=== PATIENT | male | born 1955 | race Hispanic/Latino ===

== ENCOUNTER 2023-03-03 19:22 | Inpatient (IN) | payer MEDICARE ==
[~2023-03-03] VITALS: Ht 157.5 cm; Wt 107.5 kg
[2023-03-03] MEDS ORDERED: 0.9%NACL 1000ML 1,000 ML IV ONE (20:14)
[2023-03-03] MEDS ORDERED: IPRATROPIUM/ALBUTEROL SULFATE 3 ML SOLUTION IH STA (20:26)
[2023-03-03] MEDS ORDERED: IPRATROPIUM/ALBUTEROL SULFATE 3 ML SOLUTION IH ONE (20:30)
[2023-03-03] MEDS ORDERED: CEFTRIAXONE 2GM VIAL IVPB ONE (20:30)
[2023-03-03 20:31] LABS: BASOPHILS # (AUTO) 0.08 K/uL (0.00-0.20); BASOPHILS % (AUTO) 0.7 % (0.0-5.0); EOSINOPHILS # (AUTO) 0.55 K/uL (0.00-0.70); EOSINOPHILS % (AUTO) 4.7 % (0.0-8.0); HEMATOCRIT 38.5 % (42-54); IMMATURE GRANULOCYTE ABSOLUTE 0.36 K/uL (0-1); LYMPHOCYTES # (AUTO) 0.3 K/uL (1.0-4.8); LYMPHOCYTES % (AUTO) 2.6 % (21.0-51.0); MEAN CORPUSCULAR HEMOGLOBIN 27.8 pg (27.0-33.0); MEAN CORPUSCULAR HGB CONC 32.5 g/dL (32.0-36.0); MEAN CORPUSCULAR VOLUME 85.6 fL (79-99); MONOCYTES # (AUTO) 0.4 K/uL (0.1-1.0); MONOCYTES % (AUTO) 3.4 % (3.0-13.0); NEUTROPHILS % (AUTO) 85.5 % (40.0-77.0); PLATELET COUNT (AUTO) 127 K/uL (130-400); RED CELL DISTRIBUTION WIDTH 12.6 % (11.0-15.5); WHITE BLOOD COUNT (AUTO) 11.7 K/uL (4.8-10.8)
[2023-03-03 20:32] VITALS: PULSE 93; RESP 19
[2023-03-03 20:35] VITALS: PULSE 90; RESP 23
[2023-03-03 20:39] LABS: CREATININE 3.8 mg/dL (0.5-1.5); POTASSIUM 3.8 mmol/L (3.5-5.1)
[2023-03-03 20:44] LABS: ALBUMIN 2.8 g/dL (3.5-5.0); BILIRUBIN,TOTAL 0.6 mg/dL (0.2-1.0); TOTAL PROTEIN, SERUM 6.5 g/dL (6.0-8.3)
[2023-03-03 20:51] LABS: APPEARANCE,URINE TURBID (CLEAR); BILIRUBIN,URINE NEGATIVE (NEGATIVE); COLOR,URINE YELLOW (YELLOW); GLUCOSE, URINE (UA) TRACE mg/dL (NEGATIVE); KETONES,URINE 5 mg/dL (NEGATIVE); LEUKOCYTE ESTERASE ,URINE 75 Leu/uL (NEGATIVE); NITRATE,URINE NEGATIVE (NEGATIVE); OCCULT BLOOD,URINE MODERATE (NEGATIVE); PH,URINE 5.5 (5.0-8.0); PROTEIN,URINE 300 mg/dL (NEGATIVE); UROBILINOGEN,URINE 0.2 mg/dL (0.2-1.0)
[2023-03-03 20:53] LABS: INFLUENZA TYPE A Negative For Type A (NEGATIVE); INFLUENZA TYPE B Negative For Type B (NEGATIVE)
[2023-03-03 20:54] LABS: ADD UA MICROSCOPIC YES
[2023-03-03 20:58] LABS: RAPID GROUP A STREP negative (NEGATIVE)
[2023-03-03 20:59] LABS: SARS-CoV-2, RNA, NAAT NEGATIVE SARS CoV-2 (NEGATIVE)
[2023-03-03 21:06] LABS: BACTERIA,URINE RARE /HPF (None Seen); MUCUS,URINE RARE LPF (None Seen); OTHER CASTS, URINE 1 /LPF (None Seen); SQUAMOUS EPITHELIAL CELL,UR FEW /HPF (0-2); WBC CLUMP FEW /HPF (0-1); WBC,URINE 26-50 /HPF (0-1); YEAST,URINE BUDDING RARE /HPF (None Seen)
[2023-03-03 21:15] LABS: BAND NEUTROPHILS % (MANUAL) 32 % (0-2); LYMPHOCYTES % (MANUAL) 4 % (22-44); METAMYELOCYTES % 5 % (0-0); MONOCYTES % (MANUAL) 6 % (2-9); SEGMENTED NEUTROPHILS % 53 % (40-70); TOTAL CELLS COUNTED 100
[2023-03-03 21:16] LABS: MAN.DIFF COMMENT-IMPRESSION MANUAL DIFFERENTIAL; PLATELET MORPHOLOGY COMMENT ADEQUATE
[2023-03-03 21:17] LABS: B-TYPE NATRIURETIC PEPTIDE 231 pg/mL (0-100)
[2023-03-03] MEDS ORDERED: ENOXAPARIN SODIUM 120 MG/0.8ML SQ STA (21:32)
[2023-03-03] MEDS ORDERED: ENOXAPARIN SODIUM 100 MG/1 ML SQ ONE (21:34)
[2023-03-03 21:36] LABS: INR 1.55 (0.85-1.15); PROTHROMBIN TIME 17.5 SEC (9.6-11.6)
[2023-03-03 21:37] LABS: PARTIAL THROMBOPLASTIN TIME 37.1 SEC (26.3-35.5)
[2023-03-03] MEDS ORDERED: 0.9%NACL 1000ML 1,707 ML IV ONE (22:00)
[2023-03-03] MEDS ORDERED: NOREPINEPHRIN 4MG/NS 250ML 250 ML IV ONE (22:08)
[2023-03-03] MEDS ORDERED: ZOSYN 3.375GM+NS 50ML 50 ML IVPB ONE (23:55)
[2023-03-03] MEDS ORDERED: VANCOMYCIN 1G/250ML KIT 250 ML IV ONE (23:55)
[2023-03-03] MEDS ORDERED: FUROSEMIDE 20MG VIAL ONE (23:56)
[2023-03-04] VITALS (94 sets, daily range): BP systolic 67–151; BP diastolic 22–92; PULSE 84–110; RESP 12–30; O2SAT 95–98
[2023-03-04] MEDS: NOREPINEPHRIN 4MG/NS 250ML 250 ML IV SCH ×3 (00:16→22:09)
[2023-03-04] MEDS ORDERED: VANCOMYCIN KIT 1 GM/250 ML IV.KIT IV ONE (00:30)
[2023-03-04] MEDS ORDERED: FUROSEMIDE 20MG VIAL IV ONE (00:30)
[2023-03-04] MEDS ORDERED: ZOSYN 3.375GM +NS 50ML IVPB ONE (00:30)
[2023-03-04] MEDS ORDERED: ACETAMINOPHEN 500 MG TABLET ONE (00:34)
[2023-03-04] MEDS ORDERED: IPRATROPIUM/ALBUTEROL SULFATE 3 ML SOLUTION IH ONE (00:37)
[2023-03-04] MEDS: IPRATROPIUM/ALBUTEROL SULFATE 3 ML SOLUTION IH SCH ×6 (00:43→22:49)
[2023-03-04] MEDS ORDERED: VANCOMYCIN PROTOCOL PER PHARMACY IV SCH (01:00)
[2023-03-04] MEDS ORDERED: 0.9%NACL 50ML IV SCH (01:00)
[2023-03-04] MEDS: ZOSYN 3.375GM +NS 50ML IVPB SCH ×2 (01:00→11:45)
[2023-03-04] MEDS ORDERED: SODIUM BICARB 50MEQ 50ML VIAL 200 ML ONE (01:07)
[2023-03-04] MEDS ORDERED: FUROSEMIDE 40MG VIAL ONE (01:47)
[2023-03-04] MEDS ORDERED: SOLU-MEDROL 125MG VIAL ONE (01:47)
[2023-03-04] MEDS: FUROSEMIDE 40MG VIAL IV SCH ×3 (01:55→22:00)
[2023-03-04] MEDS: SOLU-MEDROL 125MG VIAL IVP SCH ×4 (01:56→20:13)
[2023-03-04] MEDS: 0.9%NACL 1000ML 1,000 ML IV SCH ×2 (01:58→14:20)
[2023-03-04] MEDS ORDERED: DEXTROSE 50%-WATER 50 ML DISP.SYRIN IV PRN (02:00)
[2023-03-04] MEDS ORDERED: ACETAMINOPHEN 500 MG TABLET PO ONE (02:00)
[2023-03-04] MEDS ORDERED: GLUCAGON 1MG KIT 1 MG ML IM PRN (02:00)
[2023-03-04] MEDS ORDERED: FUROSEMIDE 40MG VIAL IV SCH (02:00)
[2023-03-04] MEDS ORDERED: SODIUM BICARB 50MEQ 50ML VIAL IV ONE (02:00)
[2023-03-04] MEDS ORDERED: SOLU-MEDROL 125MG VIAL IVP ONE (02:00)
[2023-03-04] MEDS ORDERED: HYDROMORPHONE 0.5 MG SYG (0.5MG/0.5ML) ONE (02:10)
[2023-03-04] MEDS ORDERED: HYDROMORPHONE 0.5 MG SYG (0.5MG/0.5ML) IVP ONE (02:30)
[2023-03-04 04:09] LABS: ABG BASE EXCESS -4.3 mmol/L (-2.0-3.0); ABG HCO3 21.9 mmol/L (21.0-28.0); ABG PCO2 45 mmHg (35-48); CARBON MONOXIDE 0.3; HHb 2.8; PO2, ARTERIAL BG 97.6 mmHg (83.0-108.0); VENT MODE, BG N.C 2 LPM (ROOM AIR)
[2023-03-04 04:23] LABS: BASOPHILS # (AUTO) 0.08 K/uL (0.00-0.20); BASOPHILS % (AUTO) 0.9 % (0.0-5.0); EOSINOPHILS # (AUTO) 0.59 K/uL (0.00-0.70); EOSINOPHILS % (AUTO) 6.8 % (0.0-8.0); HEMATOCRIT 36.4 % (42-54); IMMATURE GRANULOCYTE ABSOLUTE 0.16 K/uL (0-1); LYMPHOCYTES # (AUTO) 0.1 K/uL (1.0-4.8); LYMPHOCYTES % (AUTO) 1.6 % (21.0-51.0); MEAN CORPUSCULAR HEMOGLOBIN 27.7 pg (27.0-33.0); MEAN CORPUSCULAR HGB CONC 32.1 g/dL (32.0-36.0); MEAN CORPUSCULAR VOLUME 86.1 fL (79-99); MONOCYTES # (AUTO) 0.4 K/uL (0.1-1.0); MONOCYTES % (AUTO) 4.9 % (3.0-13.0); NEUTROPHILS # (AUTO) 7.3 K/uL (1.8-7.7); PLATELET COUNT (AUTO) 102 K/uL (130-400); RED BLOOD CELL COUNT(AUTO) 4.23 MIL/uL (4.50-6.20); RED CELL DISTRIBUTION WIDTH 12.6 % (11.0-15.5); WHITE BLOOD COUNT (AUTO) 8.7 K/uL (4.8-10.8)
[2023-03-04 04:47] LABS: ALBUMIN 2.3 g/dL (3.5-5.0); BILIRUBIN,TOTAL 0.4 mg/dL (0.2-1.0); CREATININE 3.4 mg/dL (0.5-1.5); MAGNESIUM 1.4 mg/dL (1.80-2.40); POTASSIUM 3.2 mmol/L (3.5-5.1); TOTAL PROTEIN, SERUM 5.8 g/dL (6.0-8.3)
[2023-03-04] MEDS ORDERED: VANCOMYCIN 1.75 GM/250 ML BAG 250 ML IV SCH (08:01)
[2023-03-04] MEDS ORDERED: MAGNESIUM 2GM PREMIX 50ML 50 ML IV ONE (08:24)
[2023-03-04] MEDS ORDERED: VANCOMYCIN 750MG VIAL IVPB SCH (09:00)
[2023-03-04] MEDS: MAGNESIUM 2GM PREMIX 50ML 50 ML IV PRN ×2 (09:20→16:17)
[2023-03-04] MEDS: INSULIN HUMULIN R 100 UNIT/ML 3ML SQ SCH ×4 (09:35→20:16)
[2023-03-04] MEDS ORDERED: ACETAMINOPHEN 325 MG TAB PO PRN (10:00)
[2023-03-04 12:50] LABS: INR 1.37 (0.85-1.15); PROTHROMBIN TIME 15.6 SEC (9.6-11.6)
[2023-03-04] MEDS: ASPIRIN 81 MG EC TAB PO SCH (14:18)
[2023-03-04] MEDS: CLOPIDOGREL 75MG TAB PO SCH (14:18)
[2023-03-04] MEDS ORDERED: POTASSIUM CHLORIDE 10% ELIXIR 20 MEQ/15 ML UDCUP PO PRN (15:30)
[2023-03-04] MEDS: LINEZOLID 600 MG/ISO-OSM 300 ML IV SCH (16:17)
[2023-03-04] MEDS: KCL 20 MEQ ERTAB PO PRN ×2 (16:18→22:02)
[2023-03-04] MEDS: HYDROCORTISONE SOD SUCCINATE 100 MG/2 ML VIAL IV SCH (21:41)
[2023-03-04] MEDS: ONDANSETRON 4MG INJ IV PRN (22:24)
[2023-03-05] VITALS (60 sets, daily range): BP systolic 82–143; BP diastolic 40–116; PULSE 82–98; RESP 15–33; O2SAT 95–96
[2023-03-05] MEDS: IPRATROPIUM/ALBUTEROL SULFATE 3 ML SOLUTION IH SCH ×6 (00:33→22:13)
[2023-03-05] MEDS: ZOSYN 3.375GM +NS 50ML IVPB SCH ×2 (01:22→13:00)
[2023-03-05] MEDS ORDERED: KETOROLAC 15MG/ML VIAL (15MG/ML) ONE (02:22)
[2023-03-05] MEDS ORDERED: KETOROLAC 30MG VIAL (30MG/ML) ONE (02:24)
[2023-03-05] MEDS: LINEZOLID 600 MG/ISO-OSM 300 ML IV SCH ×2 (02:25→13:52)
[2023-03-05] MEDS ORDERED: KETOROLAC 30MG VIAL (30MG/ML) IVP PRN (02:30)
[2023-03-05] MEDS ORDERED: INSULIN GLARGINE 100 UNITS/ML 10 ML VIAL SQ SCH (07:30)
[2023-03-05] MEDS: PANTOPRAZOLE 40 MG TAB DR PO SCH (07:30)
[2023-03-05] MEDS: CLOPIDOGREL 75MG TAB PO SCH (09:00)
[2023-03-05] MEDS: ATORVASTATIN 20 MG TABLET PO SCH (09:00)
[2023-03-05] MEDS: ASPIRIN 81 MG EC TAB PO SCH (09:00)
[2023-03-05] MEDS: HYDROCORTISONE SOD SUCCINATE 100 MG/2 ML VIAL IV SCH ×3 (09:00→20:33)
[2023-03-05] MEDS ORDERED: LOPERAMIDE HCL 2 MG CAP PO ONE (09:27)
[2023-03-05] MEDS: INSULIN HUMULIN R 100 UNIT/ML 3ML SQ SCH ×3 (11:30→20:40)
[2023-03-05] MEDS: FUROSEMIDE 40MG VIAL IV SCH ×2 (13:52→23:06)
[2023-03-05] MEDS ORDERED: LOPERAMIDE HCL 2 MG CAP PO PRN (14:00)
[2023-03-05] MEDS ORDERED: MIDODRINE HCL 5 MG TABLET PO PRN (14:00)
[2023-03-05 14:47] LABS: BASOPHILS # (AUTO) 0.01 K/uL (0.00-0.20); BASOPHILS % (AUTO) 0.1 % (0.0-5.0); EOSINOPHILS # (AUTO) 0.32 K/uL (0.00-0.70); EOSINOPHILS % (AUTO) 2.8 % (0.0-8.0); HEMATOCRIT 36.2 % (42-54); IMMATURE GRANULOCYTE ABSOLUTE 0.59 K/uL (0-1); LYMPHOCYTES # (AUTO) 0.2 K/uL (1.0-4.8); MEAN CORPUSCULAR HEMOGLOBIN 27.7 pg (27.0-33.0); MEAN CORPUSCULAR HGB CONC 32.9 g/dL (32.0-36.0); MEAN CORPUSCULAR VOLUME 84.4 fL (79-99); MONOCYTES # (AUTO) 0.6 K/uL (0.1-1.0); MONOCYTES % (AUTO) 5.6 % (3.0-13.0); NEUTROPHILS # (AUTO) 9.5 K/uL (1.8-7.7); NEUTROPHILS % (AUTO) 84.3 % (40.0-77.0); PLATELET COUNT (AUTO) 75 K/uL (130-400); RED BLOOD CELL COUNT(AUTO) 4.29 MIL/uL (4.50-6.20); RED CELL DISTRIBUTION WIDTH 12.8 % (11.0-15.5); WHITE BLOOD COUNT (AUTO) 11.3 K/uL (4.8-10.8)
[2023-03-05] MEDS ORDERED: MIDODRINE HCL 5 MG TABLET ONE (15:46)
[2023-03-05] MEDS: 0.9%NACL 10ML VIAL IV SCH (20:33)
[2023-03-05] MEDS: INSULIN GLARGINE 100 UNITS/ML 10 ML VIAL SQ SCH (20:35)
[2023-03-05 23:10] LABS: ALBUMIN 2.1 g/dL (3.5-5.0); BILIRUBIN,TOTAL 0.5 mg/dL (0.2-1.0); CREATININE 3.1 mg/dL (0.5-1.5); MAGNESIUM 2.1 mg/dL (1.80-2.40); PHOSPHORUS 4.7 mg/dL (2.5-4.9); POTASSIUM 3.6 mmol/L (3.5-5.1); THYROID STIMULATING HORMONE 0.73 uIU/mL (0.36-3.74); TOTAL PROTEIN, SERUM 5.7 g/dL (6.0-8.3); URIC ACID 8.4 mg/dL (2.6-7.2)
[2023-03-06] VITALS (47 sets, daily range): BP systolic 95–149; BP diastolic 42–86; PULSE 75–90; RESP 16–32; O2SAT 94–97
[2023-03-06 01:35] LABS: HEMOGLOBIN A1C 9.5 % (4.0-6.0)
[2023-03-06] MEDS: IPRATROPIUM/ALBUTEROL SULFATE 3 ML SOLUTION IH SCH ×3 (01:53→10:39)
[2023-03-06] MEDS: ZOSYN 3.375GM +NS 50ML IVPB SCH ×2 (02:24→10:59)
[2023-03-06] MEDS: LINEZOLID 600 MG/ISO-OSM 300 ML IV SCH (02:24)
[2023-03-06] MEDS: HYDROCORTISONE SOD SUCCINATE 100 MG/2 ML VIAL IV SCH ×4 (04:23→23:45)
[2023-03-06 04:49] LABS: HEMATOCRIT 32.6 % (42-54); MEAN CORPUSCULAR HEMOGLOBIN 27.6 pg (27.0-33.0); MEAN CORPUSCULAR HGB CONC 32.8 g/dL (32.0-36.0); NUCLEATED RED BLOOD CELLS 0.3 % (0.0-0.19); RED BLOOD CELL COUNT(AUTO) 3.88 MIL/uL (4.50-6.20); RED CELL DISTRIBUTION WIDTH 13.2 % (11.0-15.5); WHITE BLOOD COUNT (AUTO) 13.6 K/uL (4.8-10.8)
[2023-03-06 05:10] LABS: ALBUMIN 1.8 g/dL (3.5-5.0); BILIRUBIN,TOTAL 0.7 mg/dL (0.2-1.0); MAGNESIUM 2.1 mg/dL (1.80-2.40); PHOSPHORUS 3.9 mg/dL (2.5-4.9); TOTAL PROTEIN, SERUM 5.5 g/dL (6.0-8.3)
[2023-03-06] MEDS: FUROSEMIDE 40MG VIAL IV SCH ×2 (06:41→17:01)
[2023-03-06] MEDS: INSULIN GLARGINE 100 UNITS/ML 10 ML VIAL SQ SCH ×2 (06:44→20:36)
[2023-03-06] MEDS: INSULIN HUMULIN R 100 UNIT/ML 3ML SQ SCH ×4 (06:45→20:37)
[2023-03-06] MEDS: 0.9%NACL 10ML VIAL IV SCH ×2 (09:00→20:29)
[2023-03-06] MEDS: PANTOPRAZOLE 40 MG TAB DR PO SCH (09:01)
[2023-03-06] MEDS: NYSTATIN 100000 UNIT/ML 5ML UDCUP PO SCH ×4 (09:01→20:29)
[2023-03-06] MEDS: ATORVASTATIN 20 MG TABLET PO SCH (09:01)
[2023-03-06] MEDS: ASPIRIN 81 MG EC TAB PO SCH (09:02)
[2023-03-06] MEDS: CLOPIDOGREL 75MG TAB PO SCH (09:02)
[2023-03-06] MEDS: POTASSIUM CHLORIDE 10MEQ/100ML 100 ML IV PRN ×3 (09:15→23:45)
[2023-03-06] MEDS ORDERED: VANCOMYCIN PROTOCOL PER PHARMACY IV SCH (13:00)
[2023-03-06] MEDS: NYSTATIN 15 GM POWDER TP SCH ×3 (14:00→20:33)
[2023-03-06] MEDS ORDERED: VANCOMYCIN 750MG VIAL IVPB SCH (16:00)
[2023-03-06] MEDS: IPRATROPIUM 0.5 MG/2.5 ML INH IH SCH ×2 (18:44→23:48)
[2023-03-06 21:05] LABS: MAGNESIUM 2.2 mg/dL (1.80-2.40); POTASSIUM 3.8 mmol/L (3.5-5.1)
[2023-03-07] VITALS (42 sets, daily range): BP systolic 98–149; BP diastolic 60–117; PULSE 60–77; RESP 10–47; O2SAT 95–98
[2023-03-07] MEDS: ZOSYN 3.375GM +NS 50ML IVPB SCH (01:40)
[2023-03-07 03:12] LABS: BASOPHILS # (AUTO) 0.07 K/uL (0.00-0.20); BASOPHILS % (AUTO) 0.4 % (0.0-5.0); EOSINOPHILS # (AUTO) 0.04 K/uL (0.00-0.70); EOSINOPHILS % (AUTO) 0.2 % (0.0-8.0); HEMATOCRIT 33.8 % (42-54); IMMATURE GRANULOCYTE ABSOLUTE 0.32 K/uL (0-1); LYMPHOCYTES # (AUTO) 0.7 K/uL (1.0-4.8); LYMPHOCYTES % (AUTO) 3.9 % (21.0-51.0); MEAN CORPUSCULAR HEMOGLOBIN 27.4 pg (27.0-33.0); MEAN CORPUSCULAR HGB CONC 33.1 g/dL (32.0-36.0); MEAN CORPUSCULAR VOLUME 82.6 fL (79-99); MONOCYTES # (AUTO) 0.6 K/uL (0.1-1.0); MONOCYTES % (AUTO) 3.6 % (3.0-13.0); NEUTROPHILS # (AUTO) 16.1 K/uL (1.8-7.7); NEUTROPHILS % (AUTO) 90.1 % (40.0-77.0); NUCLEATED RED BLOOD CELLS 0.1 % (0.0-0.19); PLATELET COUNT (AUTO) 65 K/uL (130-400); RED BLOOD CELL COUNT(AUTO) 4.09 MIL/uL (4.50-6.20); RED CELL DISTRIBUTION WIDTH 13.5 % (11.0-15.5); WHITE BLOOD COUNT (AUTO) 17.8 K/uL (4.8-10.8)
[2023-03-07 03:20] LABS: ALBUMIN 1.7 g/dL (3.5-5.0); BILIRUBIN,TOTAL 0.8 mg/dL (0.2-1.0); CREATININE 2.7 mg/dL (0.5-1.5); MAGNESIUM 2.3 mg/dL (1.80-2.40); PHOSPHORUS 3.1 mg/dL (2.5-4.9); POTASSIUM 3.6 mmol/L (3.5-5.1); TOTAL PROTEIN, SERUM 5.8 g/dL (6.0-8.3)
[2023-03-07] MEDS ORDERED: HYDROMORPHONE 1 MG INJ IVP ONE (04:00)
[2023-03-07] MEDS: IPRATROPIUM 0.5 MG/2.5 ML INH IH SCH ×4 (06:45→23:10)
[2023-03-07] MEDS: HYDROCORTISONE SOD SUCCINATE 100 MG/2 ML VIAL IV SCH ×3 (06:47→22:18)
[2023-03-07] MEDS: PANTOPRAZOLE 40 MG TAB DR PO SCH (06:47)
[2023-03-07] MEDS: FUROSEMIDE 40MG VIAL IV SCH ×2 (06:48→17:05)
[2023-03-07] MEDS: INSULIN HUMULIN R 100 UNIT/ML 3ML SQ SCH ×4 (06:49→20:40)
[2023-03-07] MEDS: INSULIN GLARGINE 100 UNITS/ML 10 ML VIAL SQ SCH ×2 (06:56→20:41)
[2023-03-07] MEDS: POTASSIUM CHLORIDE 10MEQ/100ML 100 ML IV PRN (07:05)
[2023-03-07] MEDS: NYSTATIN 100000 UNIT/ML 5ML UDCUP PO SCH ×4 (08:28→20:39)
[2023-03-07] MEDS: CLOPIDOGREL 75MG TAB PO SCH (08:29)
[2023-03-07] MEDS: ASPIRIN 81 MG EC TAB PO SCH (08:29)
[2023-03-07] MEDS: ATORVASTATIN 20 MG TABLET PO SCH (08:29)
[2023-03-07] MEDS: CARVEDILOL 6.25 MG TABLET PO SCH ×2 (08:30→20:39)
[2023-03-07] MEDS: NYSTATIN 15 GM POWDER TP SCH ×2 (08:55→15:05)
[2023-03-07] MEDS: CEFTRIAXONE 2GM VIAL IVPB SCH (08:59)
[2023-03-07] MEDS: 0.9%NACL 10ML VIAL IV SCH ×2 (09:00→20:37)
[2023-03-07] MEDS: HYDROMORPHONE 0.5 MG SYG (0.5MG/0.5ML) IVP PRN (11:56)
[2023-03-07] MEDS: ONDANSETRON 4MG INJ IV PRN (18:22)
[2023-03-08] VITALS (12 sets, daily range): BP systolic 93–121; BP diastolic 52–66; PULSE 56–108; RESP 18–22; O2SAT 94–98
[2023-03-08 04:21] LABS: BASOPHILS # (AUTO) 0.11 K/uL (0.00-0.20); BASOPHILS % (AUTO) 0.5 % (0.0-5.0); HEMATOCRIT 37.7 % (42-54); IMMATURE GRANULOCYTE ABSOLUTE 0.59 K/uL (0-1); LYMPHOCYTES # (AUTO) 1.2 K/uL (1.0-4.8); LYMPHOCYTES % (AUTO) 5.8 % (21.0-51.0); MEAN CORPUSCULAR HEMOGLOBIN 27.5 pg (27.0-33.0); MEAN CORPUSCULAR HGB CONC 32.6 g/dL (32.0-36.0); MEAN CORPUSCULAR VOLUME 84.2 fL (79-99); MONOCYTES # (AUTO) 0.8 K/uL (0.1-1.0); MONOCYTES % (AUTO) 3.7 % (3.0-13.0); NEUTROPHILS # (AUTO) 18.6 K/uL (1.8-7.7); NEUTROPHILS % (AUTO) 87.2 % (40.0-77.0); PLATELET COUNT (AUTO) 67 K/uL (130-400); RED BLOOD CELL COUNT(AUTO) 4.48 MIL/uL (4.50-6.20); RED CELL DISTRIBUTION WIDTH 13.6 % (11.0-15.5); WHITE BLOOD COUNT (AUTO) 21.4 K/uL (4.8-10.8)
[2023-03-08 04:49] LABS: ALBUMIN 1.6 g/dL (3.5-5.0); BILIRUBIN,TOTAL 0.5 mg/dL (0.2-1.0); CREATININE 2.3 mg/dL (0.5-1.5); MAGNESIUM 2.4 mg/dL (1.80-2.40); PHOSPHORUS 4.3 mg/dL (2.5-4.9); POTASSIUM 3.9 mmol/L (3.5-5.1); TOTAL PROTEIN, SERUM 5.8 g/dL (6.0-8.3)
[2023-03-08] MEDS: NYSTATIN 15 GM POWDER TP SCH ×4 (06:04→20:19)
[2023-03-08] MEDS: INSULIN HUMULIN R 100 UNIT/ML 3ML SQ SCH ×4 (06:08→21:00)
[2023-03-08] MEDS: INSULIN GLARGINE 100 UNITS/ML 10 ML VIAL SQ SCH ×2 (06:10→20:39)
[2023-03-08] MEDS: FUROSEMIDE 40MG VIAL IV SCH ×2 (06:11→17:41)
[2023-03-08] MEDS: IPRATROPIUM 0.5 MG/2.5 ML INH IH SCH ×4 (07:00→23:30)
[2023-03-08] MEDS: PANTOPRAZOLE 40 MG TAB DR PO SCH (07:42)
[2023-03-08] MEDS: NYSTATIN 100000 UNIT/ML 5ML UDCUP PO SCH ×4 (09:25→20:19)
[2023-03-08] MEDS: CEFTRIAXONE 2GM VIAL IVPB SCH (09:25)
[2023-03-08] MEDS: 0.9%NACL 10ML VIAL IV SCH ×2 (09:25→20:18)
[2023-03-08] MEDS: ASPIRIN 81 MG EC TAB PO SCH (09:26)
[2023-03-08] MEDS: CLOPIDOGREL 75MG TAB PO SCH (09:26)
[2023-03-08] MEDS: ATORVASTATIN 20 MG TABLET PO SCH (09:26)
[2023-03-08] MEDS: CARVEDILOL 6.25 MG TABLET PO SCH ×2 (09:26→20:35)
[2023-03-08] MEDS ORDERED: HYDROCORTISONE SOD SUCCINATE 100 MG/2 ML VIAL IV SCH (11:00)
[2023-03-08 19:31] LABS: APPEARANCE,URINE CLEAR (CLEAR); BILIRUBIN,URINE NEGATIVE (NEGATIVE); COLOR,URINE LIGHT-YELLOW (YELLOW); GLUCOSE, URINE (UA) NEGATIVE (NEGATIVE); KETONES,URINE NEGATIVE (NEGATIVE); LEUKOCYTE ESTERASE ,URINE NEGATIVE Leu/uL (NEGATIVE); NITRATE,URINE NEGATIVE (NEGATIVE); PH,URINE 5.5 (5.0-8.0); PROTEIN,URINE NEGATIVE (NEGATIVE); UROBILINOGEN,URINE 0.2 mg/dL (0.2-1.0)
[2023-03-08 19:37] LABS: ADD UA MICROSCOPIC YES
[2023-03-08 19:39] LABS: BACTERIA,URINE RARE /HPF (None Seen); MUCUS,URINE RARE LPF (None Seen); SQUAMOUS EPITHELIAL CELL,UR RARE /HPF (0-2)
[2023-03-08] MEDS: HYDROCORTISONE SOD SUCCINATE 100 MG/2 ML VIAL IV SCH (22:07)
[2023-03-09] VITALS (14 sets, daily range): BP systolic 100–136; BP diastolic 54–71; PULSE 58–65; RESP 16–20; O2SAT 93–96
[2023-03-09] MEDS: HYDROMORPHONE 0.5 MG SYG (0.5MG/0.5ML) IVP PRN (05:00)
[2023-03-09] MEDS: FUROSEMIDE 40MG VIAL IV SCH (05:01)
[2023-03-09 05:19] LABS: HEMATOCRIT 38.5 % (42-54); MEAN CORPUSCULAR HEMOGLOBIN 27.3 pg (27.0-33.0); MEAN CORPUSCULAR HGB CONC 32.2 g/dL (32.0-36.0); MEAN CORPUSCULAR VOLUME 84.8 fL (79-99); RED BLOOD CELL COUNT(AUTO) 4.54 MIL/uL (4.50-6.20); RED CELL DISTRIBUTION WIDTH 13.7 % (11.0-15.5); WHITE BLOOD COUNT (AUTO) 21.6 K/uL (4.8-10.8)
[2023-03-09 05:47] LABS: ALBUMIN 1.7 g/dL (3.5-5.0); BILIRUBIN,TOTAL 0.6 mg/dL (0.2-1.0); CREATININE 1.9 mg/dL (0.5-1.5); MAGNESIUM 2.4 mg/dL (1.80-2.40); TOTAL PROTEIN, SERUM 5.8 g/dL (6.0-8.3)
[2023-03-09] MEDS: POTASSIUM CHLORIDE 10MEQ/100ML 100 ML IV PRN ×4 (06:14→17:01)
[2023-03-09] MEDS: IPRATROPIUM 0.5 MG/2.5 ML INH IH SCH ×4 (06:51→23:25)
[2023-03-09] MEDS: INSULIN GLARGINE 100 UNITS/ML 10 ML VIAL SQ SCH ×2 (07:15→20:48)
[2023-03-09] MEDS: INSULIN HUMULIN R 100 UNIT/ML 3ML SQ SCH ×4 (07:30→20:46)
[2023-03-09] MEDS: 0.9%NACL 10ML VIAL IV SCH ×2 (09:00→20:48)
[2023-03-09] MEDS: CEFTRIAXONE 2GM VIAL IVPB SCH (09:03)
[2023-03-09] MEDS: ASPIRIN 81 MG EC TAB PO SCH (09:03)
[2023-03-09] MEDS: CLOPIDOGREL 75MG TAB PO SCH (09:04)
[2023-03-09] MEDS: CARVEDILOL 6.25 MG TABLET PO SCH ×2 (09:05→20:46)
[2023-03-09] MEDS: FUROSEMIDE 20 MG TABLET PO SCH ×2 (09:06→20:07)
[2023-03-09] MEDS: ATORVASTATIN 20 MG TABLET PO SCH (09:06)
[2023-03-09] MEDS: NYSTATIN 15 GM POWDER TP SCH ×3 (09:06→21:01)
[2023-03-09] MEDS: PANTOPRAZOLE 40 MG TAB DR PO SCH (09:09)
[2023-03-09] MEDS: NYSTATIN 100000 UNIT/ML 5ML UDCUP PO SCH ×4 (09:09→20:48)
[2023-03-09] MEDS: HYDROCORTISONE SOD SUCCINATE 100 MG/2 ML VIAL IV SCH (12:11)
[2023-03-09] MEDS: ONDANSETRON 4MG INJ IV PRN (12:20)
[2023-03-09] MEDS ORDERED: ALTEPLASE 2MG VIAL 2 MG/VIAL VIAL IVCATH ONE ×2 (20:00)
[2023-03-10] VITALS (8 sets, daily range): BP systolic 112–146; BP diastolic 50–74; PULSE 59–62; RESP 18–20; O2SAT 93–98
[2023-03-10 04:40] LABS: BASOPHILS # (AUTO) 0.07 K/uL (0.00-0.20); BASOPHILS % (AUTO) 0.4 % (0.0-5.0); EOSINOPHILS # (AUTO) 0.21 K/uL (0.00-0.70); EOSINOPHILS % (AUTO) 1.1 % (0.0-8.0); HEMATOCRIT 36.4 % (42-54); IMMATURE GRANULOCYTE ABSOLUTE 1.01 K/uL (0-1); LYMPHOCYTES # (AUTO) 1.6 K/uL (1.0-4.8); LYMPHOCYTES % (AUTO) 8.5 % (21.0-51.0); MEAN CORPUSCULAR HEMOGLOBIN 27.5 pg (27.0-33.0); MEAN CORPUSCULAR HGB CONC 32.7 g/dL (32.0-36.0); MEAN CORPUSCULAR VOLUME 84.1 fL (79-99); MONOCYTES % (AUTO) 5.1 % (3.0-13.0); NEUTROPHILS # (AUTO) 15.1 K/uL (1.8-7.7); NEUTROPHILS % (AUTO) 79.6 % (40.0-77.0); PLATELET COUNT (AUTO) 98 K/uL (130-400); RED BLOOD CELL COUNT(AUTO) 4.33 MIL/uL (4.50-6.20); RED CELL DISTRIBUTION WIDTH 13.7 % (11.0-15.5)
[2023-03-10 05:14] LABS: ALBUMIN 1.7 g/dL (3.5-5.0); BILIRUBIN,TOTAL 0.6 mg/dL (0.2-1.0); CREATININE 1.4 mg/dL (0.5-1.5); MAGNESIUM 2.2 mg/dL (1.80-2.40); PHOSPHORUS 3.7 mg/dL (2.5-4.9); POTASSIUM 3.5 mmol/L (3.5-5.1); TOTAL PROTEIN, SERUM 5.7 g/dL (6.0-8.3)
[2023-03-10] MEDS: KCL 20 MEQ ERTAB PO PRN ×2 (05:59→10:44)
[2023-03-10] MEDS: INSULIN HUMULIN R 100 UNIT/ML 3ML SQ SCH ×4 (06:02→21:00)
[2023-03-10] MEDS: INSULIN GLARGINE 100 UNITS/ML 10 ML VIAL SQ SCH ×2 (06:02→22:03)
[2023-03-10] MEDS: IPRATROPIUM 0.5 MG/2.5 ML INH IH SCH (06:58)
[2023-03-10] MEDS ORDERED: PHARMACY COMMUNICATION MISC SCH (08:00)
[2023-03-10] MEDS ORDERED: IPRATROPIUM 0.5 MG/2.5 ML INH IH PRN (10:30)
[2023-03-10] MEDS: 0.9%NACL 10ML VIAL IV SCH ×2 (10:41→22:04)
[2023-03-10] MEDS: NYSTATIN 100000 UNIT/ML 5ML UDCUP PO SCH ×4 (10:42→21:00)
[2023-03-10] MEDS: ATORVASTATIN 20 MG TABLET PO SCH (10:42)
[2023-03-10] MEDS: CARVEDILOL 6.25 MG TABLET PO SCH ×2 (10:43→22:00)
[2023-03-10] MEDS: FUROSEMIDE 20 MG TABLET PO SCH ×2 (10:43→18:14)
[2023-03-10] MEDS: ASPIRIN 81 MG EC TAB PO SCH (10:43)
[2023-03-10] MEDS: CLOPIDOGREL 75MG TAB PO SCH (10:44)
[2023-03-10] MEDS: PANTOPRAZOLE 40 MG TAB DR PO SCH (10:44)
[2023-03-10] MEDS: CEFTRIAXONE 2GM VIAL IVPB SCH (10:44)
[2023-03-10] MEDS: NYSTATIN 15 GM POWDER TP SCH ×3 (10:45→22:06)
[2023-03-10] MEDS: BIOTENE 44.3 ML SOLUTION MM SCH ×2 (10:45→22:09)
[2023-03-10] MEDS ORDERED: NYSTATIN 100000 UNIT/ML 5ML UDCUP ONE (12:36)
[2023-03-11] VITALS (10 sets, daily range): BP systolic 126–133; BP diastolic 51–69; PULSE 58–67; RESP 18–22; O2SAT 96–99
[2023-03-11 04:51] LABS: BASOPHILS # (AUTO) 0.09 K/uL (0.00-0.20); BASOPHILS % (AUTO) 0.5 % (0.0-5.0); HEMATOCRIT 38.6 % (42-54); IMMATURE GRANULOCYTE ABSOLUTE 1.25 K/uL (0-1); LYMPHOCYTES # (AUTO) 1.4 K/uL (1.0-4.8); LYMPHOCYTES % (AUTO) 7.2 % (21.0-51.0); MEAN CORPUSCULAR HEMOGLOBIN 27.4 pg (27.0-33.0); MEAN CORPUSCULAR HGB CONC 31.3 g/dL (32.0-36.0); MEAN CORPUSCULAR VOLUME 87.5 fL (79-99); MONOCYTES % (AUTO) 5.1 % (3.0-13.0); NEUTROPHILS # (AUTO) 15.9 K/uL (1.8-7.7); NEUTROPHILS % (AUTO) 79.9 % (40.0-77.0); PLATELET COUNT (AUTO) 117 K/uL (130-400); RED BLOOD CELL COUNT(AUTO) 4.41 MIL/uL (4.50-6.20); RED CELL DISTRIBUTION WIDTH 13.7 % (11.0-15.5); WHITE BLOOD COUNT (AUTO) 19.9 K/uL (4.8-10.8)
[2023-03-11 05:02] LABS: CREATININE 1.2 mg/dL (0.5-1.5); MAGNESIUM 2.2 mg/dL (1.80-2.40)
[2023-03-11] MEDS: HYDROMORPHONE 0.5 MG SYG (0.5MG/0.5ML) IVP PRN ×2 (05:11→21:33)
[2023-03-11] MEDS: INSULIN HUMULIN R 100 UNIT/ML 3ML SQ SCH ×4 (06:42→21:00)
[2023-03-11] MEDS: INSULIN GLARGINE 100 UNITS/ML 10 ML VIAL SQ SCH ×2 (07:12→21:00)
[2023-03-11] MEDS: IODOSORB GEL 40GM TP SCH (09:00)
[2023-03-11] MEDS: 0.9%NACL 10ML VIAL IV SCH ×2 (09:00→21:32)
[2023-03-11] MEDS: ASPIRIN 81 MG EC TAB PO SCH (11:01)
[2023-03-11] MEDS: CARVEDILOL 6.25 MG TABLET PO SCH ×2 (11:01→21:32)
[2023-03-11] MEDS: FUROSEMIDE 20 MG TABLET PO SCH ×2 (11:01→16:54)
[2023-03-11] MEDS: ATORVASTATIN 20 MG TABLET PO SCH (11:02)
[2023-03-11] MEDS: CEFTRIAXONE 2GM VIAL IVPB SCH (11:02)
[2023-03-11] MEDS: CLOPIDOGREL 75MG TAB PO SCH (11:02)
[2023-03-11] MEDS: PANTOPRAZOLE 40 MG TAB DR PO SCH (11:02)
[2023-03-11] MEDS: NYSTATIN 15 GM POWDER TP SCH ×3 (11:03→21:35)
[2023-03-11] MEDS: LIDOCAINE HCL 2% VISCOUS 15 ML UDCUP PO SCH ×3 (11:03→21:33)
[2023-03-11] MEDS: NYSTATIN 100000 UNIT/ML 5ML UDCUP PO SCH ×4 (11:03→21:33)
[2023-03-11] MEDS: BIOTENE 44.3 ML SOLUTION MM SCH ×2 (11:04→21:35)
[2023-03-12] VITALS (9 sets, daily range): BP systolic 114–152; BP diastolic 57–69; PULSE 60–70; RESP 18–20; O2SAT 92–98
[2023-03-12] MEDS: PANTOPRAZOLE 40 MG TAB DR PO SCH (05:54)
[2023-03-12] MEDS: HYDROMORPHONE 0.5 MG SYG (0.5MG/0.5ML) IVP PRN ×2 (05:55→19:35)
[2023-03-12] MEDS: LIDOCAINE HCL 2% VISCOUS 15 ML UDCUP PO SCH ×4 (05:55→20:58)
[2023-03-12] MEDS: INSULIN HUMULIN R 100 UNIT/ML 3ML SQ SCH ×4 (07:30→20:28)
[2023-03-12] MEDS: CEFTRIAXONE 2GM VIAL IVPB SCH (08:07)
[2023-03-12] MEDS: BIOTENE 44.3 ML SOLUTION MM SCH ×2 (08:07→20:57)
[2023-03-12] MEDS: NYSTATIN 15 GM POWDER TP SCH ×3 (08:08→19:43)
[2023-03-12] MEDS: NYSTATIN 100000 UNIT/ML 5ML UDCUP PO SCH (08:08)
[2023-03-12] MEDS: ATORVASTATIN 20 MG TABLET PO SCH (08:11)
[2023-03-12] MEDS: CLOPIDOGREL 75MG TAB PO SCH (08:11)
[2023-03-12] MEDS: FUROSEMIDE 20 MG TABLET PO SCH ×2 (08:12→16:00)
[2023-03-12] MEDS: CARVEDILOL 6.25 MG TABLET PO SCH ×2 (08:13→20:57)
[2023-03-12] MEDS: ASPIRIN 81 MG EC TAB PO SCH (08:13)
[2023-03-12] MEDS: INSULIN GLARGINE 100 UNITS/ML 10 ML VIAL SQ SCH ×2 (08:33→20:29)
[2023-03-12] MEDS: IODOSORB GEL 40GM TP SCH (09:00)
[2023-03-12] MEDS: ONDANSETRON 4MG INJ IV PRN ×2 (09:31→09:33)
[2023-03-12] MEDS: 0.9%NACL 10ML VIAL IV SCH ×2 (09:32→20:55)
[2023-03-12] MEDS ORDERED: HYDROCODONE/ACETAMINOPHEN 5/325 MG TAB PO PRN (16:00)
[2023-03-12] MEDS: CLOTRIMAZOLE 10 MG TROCHE MM SCH ×2 (16:00→20:56)
[2023-03-12] MEDS: HYDROCODONE/ACETAMINOPHEN 10/325 MG TAB PO PRN (16:22)
[2023-03-12] MEDS: BACITRACIN 28.4 GM OINT TP SCH (20:29)
[2023-03-13] VITALS (27 sets, daily range): BP systolic 113–176; BP diastolic 52–92; PULSE 63–73; RESP 14–20; O2SAT 93–94
[2023-03-13 04:29] LABS: BASOPHILS # (AUTO) 0.03 K/uL (0.00-0.20); BASOPHILS % (AUTO) 0.2 % (0.0-5.0); EOSINOPHILS # (AUTO) 0.11 K/uL (0.00-0.70); EOSINOPHILS % (AUTO) 0.7 % (0.0-8.0); HEMATOCRIT 35.6 % (42-54); IMMATURE GRANULOCYTE ABSOLUTE 0.46 K/uL (0-1); LYMPHOCYTES # (AUTO) 1.3 K/uL (1.0-4.8); LYMPHOCYTES % (AUTO) 8.6 % (21.0-51.0); MEAN CORPUSCULAR HEMOGLOBIN 27.3 pg (27.0-33.0); MEAN CORPUSCULAR HGB CONC 31.2 g/dL (32.0-36.0); MEAN CORPUSCULAR VOLUME 87.5 fL (79-99); MONOCYTES # (AUTO) 0.9 K/uL (0.1-1.0); MONOCYTES % (AUTO) 5.7 % (3.0-13.0); NEUTROPHILS # (AUTO) 12.1 K/uL (1.8-7.7); NEUTROPHILS % (AUTO) 81.7 % (40.0-77.0); PLATELET COUNT (AUTO) 155 K/uL (130-400); RED BLOOD CELL COUNT(AUTO) 4.07 MIL/uL (4.50-6.20); RED CELL DISTRIBUTION WIDTH 13.3 % (11.0-15.5); WHITE BLOOD COUNT (AUTO) 14.8 K/uL (4.8-10.8)
[2023-03-13 04:40] LABS: MAGNESIUM 1.9 mg/dL (1.80-2.40); PHOSPHORUS 3.3 mg/dL (2.5-4.9); POTASSIUM 4.1 mmol/L (3.5-5.1)
[2023-03-13] MEDS: PANTOPRAZOLE 40 MG TAB DR PO SCH (05:55)
[2023-03-13] MEDS: LIDOCAINE HCL 2% VISCOUS 15 ML UDCUP PO SCH ×4 (05:55→21:37)
[2023-03-13] MEDS: INSULIN HUMULIN R 100 UNIT/ML 3ML SQ SCH ×4 (05:55→20:25)
[2023-03-13] MEDS: INSULIN GLARGINE 100 UNITS/ML 10 ML VIAL SQ SCH ×2 (05:56→20:25)
[2023-03-13] MEDS: CARVEDILOL 6.25 MG TABLET PO SCH ×2 (08:30→21:00)
[2023-03-13] MEDS: ATORVASTATIN 20 MG TABLET PO SCH (08:32)
[2023-03-13] MEDS: CEFTRIAXONE 2GM VIAL IVPB SCH (08:32)
[2023-03-13] MEDS: ASPIRIN 81 MG EC TAB PO SCH (08:33)
[2023-03-13] MEDS: 0.9%NACL 10ML VIAL IV SCH ×2 (08:37→21:37)
[2023-03-13] MEDS: IODOSORB GEL 40GM TP SCH (08:38)
[2023-03-13] MEDS: CLOPIDOGREL 75MG TAB PO SCH (08:41)
[2023-03-13] MEDS: BIOTENE 44.3 ML SOLUTION MM SCH ×2 (08:42→21:38)
[2023-03-13] MEDS: NYSTATIN 15 GM POWDER TP SCH ×3 (08:43→21:39)
[2023-03-13] MEDS: FUROSEMIDE 20 MG TABLET PO SCH ×2 (10:00→17:58)
[2023-03-13] MEDS: CLOTRIMAZOLE 10 MG TROCHE MM SCH ×3 (10:00→21:37)
[2023-03-13] MEDS ORDERED: FENTANYL CITRATE PF 50 MCG/1 ML 5ML AMP IV ONE ×2 (14:03→15:17)
[2023-03-13] MEDS ORDERED: 0.9%NACL 1000ML 1,000 ML IV ONE (14:10)
[2023-03-13] MEDS ORDERED: EPINEPHRINE PF 1MG (1:1,000) 1 MG/ML AMP ONE (14:11)
[2023-03-13] MEDS ORDERED: LIDOCAINE PF 100MG/5ML (2%) SYRINGE 5ML ONE (14:14)
[2023-03-13] MEDS ORDERED: SUCCINYLCHOLINE CHLORIDE 20 MG/ML 10 ML VIAL ONE (14:14)
[2023-03-13] MEDS ORDERED: DEXAMETHASONE SOD PHOSPHATE 10MG/ML 1ML VIAL ONE (14:14)
[2023-03-13] MEDS ORDERED: MIDAZOLAM HCL 1 MG/ML 2ML VIAL ONE (14:44)
[2023-03-13] MEDS ORDERED: MEPERIDINE-PF 25 MG/ML SYG ONE ×2 (14:59→16:00)
[2023-03-13] MEDS ORDERED: KETAMINE 50MG/ML SYRINGE 50 MG/ML DISP.SYRIN ONE (15:02)
[2023-03-13] MEDS ORDERED: HYDRALAZINE 20MG/ML VIAL ONE (16:09)
[2023-03-13] MEDS: BACITRACIN 28.4 GM OINT TP SCH (17:21)
[2023-03-13] MEDS: HYDROCODONE/ACETAMINOPHEN 10/325 MG TAB PO PRN (17:59)
[2023-03-14] VITALS (8 sets, daily range): BP systolic 113–135; BP diastolic 52–82; PULSE 65–75; RESP 18–20; O2SAT 97–99
[2023-03-14 04:35] LABS: BASOPHILS # (AUTO) 0.01 K/uL (0.00-0.20); BASOPHILS % (AUTO) 0.1 % (0.0-5.0); EOSINOPHILS # (AUTO) 0.03 K/uL (0.00-0.70); EOSINOPHILS % (AUTO) 0.2 % (0.0-8.0); HEMATOCRIT 36.2 % (42-54); IMMATURE GRANULOCYTE ABSOLUTE 0.12 K/uL (0-1); LYMPHOCYTES # (AUTO) 1.3 K/uL (1.0-4.8); LYMPHOCYTES % (AUTO) 9.5 % (21.0-51.0); MEAN CORPUSCULAR HEMOGLOBIN 27.2 pg (27.0-33.0); MEAN CORPUSCULAR HGB CONC 30.9 g/dL (32.0-36.0); MEAN CORPUSCULAR VOLUME 87.9 fL (79-99); MONOCYTES # (AUTO) 0.8 K/uL (0.1-1.0); MONOCYTES % (AUTO) 5.8 % (3.0-13.0); NEUTROPHILS # (AUTO) 11.6 K/uL (1.8-7.7); NEUTROPHILS % (AUTO) 83.5 % (40.0-77.0); PLATELET COUNT (AUTO) 159 K/uL (130-400); RED BLOOD CELL COUNT(AUTO) 4.12 MIL/uL (4.50-6.20); RED CELL DISTRIBUTION WIDTH 13.4 % (11.0-15.5); WHITE BLOOD COUNT (AUTO) 13.9 K/uL (4.8-10.8)
[2023-03-14 04:45] LABS: CREATININE 0.9 mg/dL (0.5-1.5); POTASSIUM 3.6 mmol/L (3.5-5.1)
[2023-03-14] MEDS: HYDROCODONE/ACETAMINOPHEN 10/325 MG TAB PO PRN (06:39)
[2023-03-14] MEDS: INSULIN HUMULIN R 100 UNIT/ML 3ML SQ SCH ×4 (07:30→20:58)
[2023-03-14] MEDS: INSULIN GLARGINE 100 UNITS/ML 10 ML VIAL SQ SCH ×2 (07:30→20:58)
[2023-03-14] MEDS: IODOSORB GEL 40GM TP SCH (09:00)
[2023-03-14] MEDS: CEFTRIAXONE 2GM VIAL IVPB SCH (10:00)
[2023-03-14] MEDS: CLOTRIMAZOLE 10 MG TROCHE MM SCH ×3 (10:03→21:17)
[2023-03-14] MEDS: PANTOPRAZOLE 40 MG TAB DR PO SCH (10:03)
[2023-03-14] MEDS: ATORVASTATIN 20 MG TABLET PO SCH (10:03)
[2023-03-14] MEDS: CARVEDILOL 6.25 MG TABLET PO SCH ×2 (10:04→21:17)
[2023-03-14] MEDS: CLOPIDOGREL 75MG TAB PO SCH (10:04)
[2023-03-14] MEDS: ASPIRIN 81 MG EC TAB PO SCH (10:05)
[2023-03-14] MEDS: BIOTENE 44.3 ML SOLUTION MM SCH ×2 (10:06→21:18)
[2023-03-14] MEDS: 0.9%NACL 10ML VIAL IV SCH ×2 (10:06→21:17)
[2023-03-14] MEDS: LIDOCAINE HCL 2% VISCOUS 15 ML UDCUP PO SCH ×4 (10:10→21:00)
[2023-03-14] MEDS: NYSTATIN 15 GM POWDER TP SCH ×3 (10:10→21:18)
[2023-03-14] MEDS: FUROSEMIDE 20 MG TABLET PO SCH ×2 (10:10→17:47)
[2023-03-14] MEDS: BACITRACIN 28.4 GM OINT TP SCH (18:09)
[2023-03-15] VITALS (7 sets, daily range): BP systolic 108–156; BP diastolic 40–59; PULSE 62–71; RESP 16–24; O2SAT 94–95
[2023-03-15 04:19] LABS: BASOPHILS # (AUTO) 0.02 K/uL (0.00-0.20); BASOPHILS % (AUTO) 0.2 % (0.0-5.0); EOSINOPHILS # (AUTO) 0.04 K/uL (0.00-0.70); EOSINOPHILS % (AUTO) 0.3 % (0.0-8.0); HEMATOCRIT 34.7 % (42-54); IMMATURE GRANULOCYTE ABSOLUTE 0.07 K/uL (0-1); LYMPHOCYTES # (AUTO) 1.6 K/uL (1.0-4.8); LYMPHOCYTES % (AUTO) 12.8 % (21.0-51.0); MEAN CORPUSCULAR HEMOGLOBIN 27.4 pg (27.0-33.0); MEAN CORPUSCULAR HGB CONC 30.8 g/dL (32.0-36.0); MEAN CORPUSCULAR VOLUME 88.7 fL (79-99); MONOCYTES # (AUTO) 0.8 K/uL (0.1-1.0); MONOCYTES % (AUTO) 6.2 % (3.0-13.0); NEUTROPHILS # (AUTO) 9.8 K/uL (1.8-7.7); NEUTROPHILS % (AUTO) 79.9 % (40.0-77.0); PLATELET COUNT (AUTO) 156 K/uL (130-400); RED BLOOD CELL COUNT(AUTO) 3.91 MIL/uL (4.50-6.20); RED CELL DISTRIBUTION WIDTH 13.2 % (11.0-15.5); WHITE BLOOD COUNT (AUTO) 12.2 K/uL (4.8-10.8)
[2023-03-15 04:43] LABS: CREATININE 0.9 mg/dL (0.5-1.5); POTASSIUM 3.6 mmol/L (3.5-5.1)
[2023-03-15] MEDS: INSULIN HUMULIN R 100 UNIT/ML 3ML SQ SCH ×4 (06:24→21:00)
[2023-03-15] MEDS: PANTOPRAZOLE 40 MG TAB DR PO SCH (06:25)
[2023-03-15] MEDS: INSULIN GLARGINE 100 UNITS/ML 10 ML VIAL SQ SCH ×2 (06:25→21:00)
[2023-03-15] MEDS: KCL 20 MEQ ERTAB PO PRN (06:26)
[2023-03-15] MEDS: CLOTRIMAZOLE 10 MG TROCHE MM SCH ×3 (07:28→21:07)
[2023-03-15] MEDS: CEFTRIAXONE 2GM VIAL IVPB SCH (08:46)
[2023-03-15] MEDS: LIDOCAINE HCL 2% VISCOUS 15 ML UDCUP PO SCH ×4 (08:47→21:07)
[2023-03-15] MEDS: ASPIRIN 81 MG EC TAB PO SCH (08:50)
[2023-03-15] MEDS: ATORVASTATIN 20 MG TABLET PO SCH (08:50)
[2023-03-15] MEDS: CARVEDILOL 6.25 MG TABLET PO SCH ×2 (08:51→21:00)
[2023-03-15] MEDS: CLOPIDOGREL 75MG TAB PO SCH (08:52)
[2023-03-15] MEDS: 0.9%NACL 10ML VIAL IV SCH ×2 (08:52→21:00)
[2023-03-15] MEDS: FUROSEMIDE 20 MG TABLET PO SCH ×2 (08:52→16:44)
[2023-03-15] MEDS: NYSTATIN 15 GM POWDER TP SCH ×3 (08:53→21:11)
[2023-03-15] MEDS: IODOSORB GEL 40GM TP SCH (08:54)
[2023-03-15] MEDS: BIOTENE 44.3 ML SOLUTION MM SCH ×2 (08:54→21:11)
[2023-03-15] MEDS: ONDANSETRON 4MG INJ IV PRN (12:37)
[2023-03-15] MEDS: HYDROMORPHONE 0.5 MG SYG (0.5MG/0.5ML) IVP PRN ×2 (13:47→23:33)
[2023-03-15] MEDS: BACITRACIN 28.4 GM OINT TP SCH (18:00)
[2023-03-15] MEDS: HYDROCODONE/ACETAMINOPHEN 10/325 MG TAB PO PRN (21:08)
[2023-03-16] VITALS (8 sets, daily range): BP systolic 118–159; BP diastolic 49–65; PULSE 63–71; RESP 17–20; O2SAT 94–97
[2023-03-16 05:09] LABS: INR 1.07 (0.85-1.15); PROTHROMBIN TIME 12.4 SEC (9.6-11.6)
[2023-03-16 05:10] LABS: PARTIAL THROMBOPLASTIN TIME 30.4 SEC (26.3-35.5)
[2023-03-16] MEDS: INSULIN GLARGINE 100 UNITS/ML 10 ML VIAL SQ SCH ×2 (05:58→21:55)
[2023-03-16] MEDS: INSULIN HUMULIN R 100 UNIT/ML 3ML SQ SCH ×4 (05:58→21:42)
[2023-03-16] MEDS: CLOPIDOGREL 75MG TAB PO SCH (09:44)
[2023-03-16] MEDS: CLOTRIMAZOLE 10 MG TROCHE MM SCH ×3 (09:45→21:37)
[2023-03-16] MEDS: FUROSEMIDE 20 MG TABLET PO SCH ×2 (09:45→17:43)
[2023-03-16] MEDS: ASPIRIN 81 MG EC TAB PO SCH (09:45)
[2023-03-16] MEDS: CARVEDILOL 6.25 MG TABLET PO SCH ×2 (09:45→21:37)
[2023-03-16] MEDS: ATORVASTATIN 20 MG TABLET PO SCH (09:45)
[2023-03-16] MEDS: LIDOCAINE HCL 2% VISCOUS 15 ML UDCUP PO SCH ×4 (09:46→21:00)
[2023-03-16] MEDS: 0.9%NACL 10ML VIAL IV SCH ×2 (09:47→21:00)
[2023-03-16] MEDS: CEFTRIAXONE 2GM VIAL IVPB SCH (09:47)
[2023-03-16] MEDS: PANTOPRAZOLE 40 MG TAB DR PO SCH (09:48)
[2023-03-16] MEDS: BIOTENE 44.3 ML SOLUTION MM SCH ×2 (09:54→21:42)
[2023-03-16] MEDS: NYSTATIN 15 GM POWDER TP SCH ×3 (09:55→21:57)
[2023-03-16] MEDS: IODOSORB GEL 40GM TP SCH (12:59)
[2023-03-16] MEDS: BACITRACIN 28.4 GM OINT TP SCH (17:44)
[2023-03-16] MEDS: HYDROMORPHONE 0.5 MG SYG (0.5MG/0.5ML) IVP PRN (21:38)
[2023-03-17] VITALS (27 sets, daily range): BP systolic 110–158; BP diastolic 44–78; PULSE 65–74; RESP 12–19; O2SAT 96–98
[2023-03-17] MEDS: INSULIN GLARGINE 100 UNITS/ML 10 ML VIAL SQ SCH ×2 (06:41→21:34)
[2023-03-17] MEDS: INSULIN HUMULIN R 100 UNIT/ML 3ML SQ SCH ×4 (06:41→21:00)
[2023-03-17] MEDS: LIDOCAINE HCL 2% VISCOUS 15 ML UDCUP PO SCH ×4 (06:42→21:00)
[2023-03-17] MEDS: PANTOPRAZOLE 40 MG TAB DR PO SCH (06:50)
[2023-03-17] MEDS: CEFTRIAXONE 2GM VIAL IVPB SCH (07:54)
[2023-03-17] MEDS ORDERED: LIDOCAINE PF 100MG/5ML (2%) SYRINGE 5ML ONE (08:18)
[2023-03-17] MEDS ORDERED: MIDAZOLAM HCL 1 MG/ML 2ML VIAL ONE (08:18)
[2023-03-17] MEDS ORDERED: PROPOFOL 10 MG/ML 20ML VIAL IV ONE (08:18)
[2023-03-17] MEDS ORDERED: FENTANYL CITRATE PF 50 MCG/1 ML 2ML VIAL ONE (08:18)
[2023-03-17] MEDS ORDERED: PHENYLEPHRINE HCL 10 MG/ML 1ML VIAL IV ONE (08:20)
[2023-03-17] MEDS ORDERED: ONDANSETRON 4MG INJ ONE (08:33)
[2023-03-17] MEDS: CLOTRIMAZOLE 10 MG TROCHE MM SCH ×3 (09:00→21:28)
[2023-03-17] MEDS: IODOSORB GEL 40GM TP SCH (09:00)
[2023-03-17] MEDS: 0.9%NACL 10ML VIAL IV SCH ×2 (09:00→21:29)
[2023-03-17] MEDS: CLOPIDOGREL 75MG TAB PO SCH (09:00)
[2023-03-17] MEDS: CARVEDILOL 6.25 MG TABLET PO SCH ×2 (09:00→21:28)
[2023-03-17] MEDS: ASPIRIN 81 MG EC TAB PO SCH (09:00)
[2023-03-17] MEDS: NYSTATIN 15 GM POWDER TP SCH ×3 (09:00→21:31)
[2023-03-17] MEDS: FUROSEMIDE 20 MG TABLET PO SCH ×2 (09:00→18:06)
[2023-03-17] MEDS: BIOTENE 44.3 ML SOLUTION MM SCH ×2 (09:00→21:29)
[2023-03-17] MEDS ORDERED: MEPERIDINE-PF 25 MG/ML SYG ONE (09:29)
[2023-03-17 11:12] LABS: BASOPHILS # (AUTO) 0.04 K/uL (0.00-0.20); BASOPHILS % (AUTO) 0.4 % (0.0-5.0); EOSINOPHILS # (AUTO) 0.05 K/uL (0.00-0.70); EOSINOPHILS % (AUTO) 0.5 % (0.0-8.0); HEMATOCRIT 33.6 % (42-54); IMMATURE GRANULOCYTE ABSOLUTE 0.07 K/uL (0-1); LYMPHOCYTES # (AUTO) 1.5 K/uL (1.0-4.8); LYMPHOCYTES % (AUTO) 13.6 % (21.0-51.0); MEAN CORPUSCULAR HEMOGLOBIN 27.2 pg (27.0-33.0); MONOCYTES # (AUTO) 0.7 K/uL (0.1-1.0); MONOCYTES % (AUTO) 6.7 % (3.0-13.0); NEUTROPHILS # (AUTO) 8.4 K/uL (1.8-7.7); NEUTROPHILS % (AUTO) 78.1 % (40.0-77.0); PLATELET COUNT (AUTO) 175 K/uL (130-400); RED BLOOD CELL COUNT(AUTO) 3.82 MIL/uL (4.50-6.20); RED CELL DISTRIBUTION WIDTH 12.8 % (11.0-15.5); WHITE BLOOD COUNT (AUTO) 10.7 K/uL (4.8-10.8)
[2023-03-17 11:22] LABS: CREATININE 0.9 mg/dL (0.5-1.5); POTASSIUM 3.8 mmol/L (3.5-5.1)
[2023-03-17 11:26] LABS: ALBUMIN 1.3 g/dL (3.5-5.0); BILIRUBIN,TOTAL 0.3 mg/dL (0.2-1.0); TOTAL PROTEIN, SERUM 6.2 g/dL (6.0-8.3)
[2023-03-17] MEDS: ATORVASTATIN 20 MG TABLET PO SCH (12:52)
[2023-03-17 14:26] LABS: INR 1.12 (0.85-1.15); PROTHROMBIN TIME 12.9 SEC (9.6-11.6)
[2023-03-17] MEDS: BACITRACIN 28.4 GM OINT TP SCH (18:00)
[2023-03-17] MEDS ORDERED: HYDROCODONE/ACETAMINOPHEN 10/325 MG TAB PO PRN (22:00)
[2023-03-17] MEDS: HYDROMORPHONE 0.5 MG SYG (0.5MG/0.5ML) IVP PRN (22:03)
[2023-03-18] VITALS: BP 112/55; PULSE 73; RESP 18
[2023-03-18 04:41] VITALS: BP 125/59; PULSE 73; RESP 18
[2023-03-18] MEDS: INSULIN HUMULIN R 100 UNIT/ML 3ML SQ SCH ×2 (05:51→12:26)
[2023-03-18] MEDS: PANTOPRAZOLE 40 MG TAB DR PO SCH (06:30)
[2023-03-18] MEDS: INSULIN GLARGINE 100 UNITS/ML 10 ML VIAL SQ SCH (06:34)
[2023-03-18] MEDS: LIDOCAINE HCL 2% VISCOUS 15 ML UDCUP PO SCH ×2 (06:35→12:23)
[2023-03-18 07:25] VITALS: O2SAT 100
[2023-03-18 08:00] VITALS: BP 123/51; PULSE 69; RESP 19
[2023-03-18] MEDS: 0.9%NACL 10ML VIAL IV SCH (09:12)
[2023-03-18] MEDS: CEFTRIAXONE 2GM VIAL IVPB SCH (09:12)
[2023-03-18] MEDS: HYDROMORPHONE 0.5 MG SYG (0.5MG/0.5ML) IVP PRN (09:14)
[2023-03-18] MEDS: FUROSEMIDE 20 MG TABLET PO SCH (09:15)
[2023-03-18] MEDS: ATORVASTATIN 20 MG TABLET PO SCH (09:15)
[2023-03-18] MEDS: CLOPIDOGREL 75MG TAB PO SCH (09:15)
[2023-03-18] MEDS: CLOTRIMAZOLE 10 MG TROCHE MM SCH (09:17)
[2023-03-18] MEDS: CARVEDILOL 6.25 MG TABLET PO SCH (09:17)
[2023-03-18] MEDS: ASPIRIN 81 MG EC TAB PO SCH (09:17)
[2023-03-18] MEDS: IODOSORB GEL 40GM TP SCH (09:18)
[2023-03-18] MEDS: NYSTATIN 15 GM POWDER TP SCH ×2 (09:18→14:35)
[2023-03-18] MEDS: BIOTENE 44.3 ML SOLUTION MM SCH (09:19)
[2023-03-18 12:00] VITALS: BP 132/60; PULSE 68; RESP 17
== END 2023-03-18 15:00 | DRG 853 ==
LOC: EDH 19:22 → EDHIP 03-04 00:24 → 2BH 03-04 05:18 → 2AH 03-07 18:53 → UNDODISIN 03-10 09:02 → 4BH 03-14 18:30
PROVIDERS: ADMIT Hospitalist; ATTEND Hospitalist
PROC: 02HV33Z Insertion of Infusion Device into Superior Vena Cava, Percutaneous Approach (ICD-10-PCS; 2023-03-05)
PROC: B548ZZA Ultrasonography of Superior Vena Cava, Guidance (ICD-10-PCS; 2023-03-05)
PROC: 0JBR0ZZ Excision of Left Foot Subcutaneous Tissue and Fascia, Open Approach (ICD-10-PCS; 2023-03-13)
PROC: 0JBM0ZZ Excision of Left Upper Leg Subcutaneous Tissue and Fascia, Open Approach (ICD-10-PCS; principal; 2023-03-13 15:00)
DX: A41.9 Sepsis, unspecified organism (principal); I21.4 Non-ST elevation (NSTEMI) myocardial infarction; J96.00 Acute respiratory failure, unspecified whether with hypoxia or hypercapnia; R65.21 Severe sepsis with septic shock; I50.41 Acute combined systolic (congestive) and diastolic (congestive) heart failure; M72.6 Necrotizing fasciitis; N17.9 Acute kidney failure, unspecified; L03.116 Cellulitis of left lower limb; N39.0 Urinary tract infection, site not specified; D68.9 Coagulation defect, unspecified; E87.1 Hypo-osmolality and hyponatremia; E44.0 Moderate protein-calorie malnutrition; Z68.41 Body mass index [BMI] 40.0-44.9, adult; L03.221 Cellulitis of neck; I13.0 Hypertensive heart and chronic kidney disease with heart failure and stage 1 through stage 4 chronic kidney disease, or unspecified chronic kidney disease; E87.20 Acidosis, unspecified; Z16.24 Resistance to multiple antibiotics; N18.9 Chronic kidney disease, unspecified; E11.22 Type 2 diabetes mellitus with diabetic chronic kidney disease; D64.9 Anemia, unspecified; D69.6 Thrombocytopenia, unspecified; E11.65 Type 2 diabetes mellitus with hyperglycemia; R79.89 Other specified abnormal findings of blood chemistry; R60.0 Localized edema; L97.529 Non-pressure chronic ulcer of other part of left foot with unspecified severity; E11.621 Type 2 diabetes mellitus with foot ulcer; E83.42 Hypomagnesemia; E87.6 Hypokalemia; E66.01 Morbid (severe) obesity due to excess calories; S80.822A Blister (nonthermal), left lower leg, initial encounter; B95.0 Streptococcus, group A, as the cause of diseases classified elsewhere; B96.89 Other specified bacterial agents as the cause of diseases classified elsewhere; I25.10 Atherosclerotic heart disease of native coronary artery without angina pectoris; K76.0 Fatty (change of) liver, not elsewhere classified; N41.9 Inflammatory disease of prostate, unspecified; R29.6 Repeated falls; Z75.1 Person awaiting admission to adequate facility elsewhere; I25.2 Old myocardial infarction; Z79.899 Other long term (current) drug therapy; Z83.3 Family history of diabetes mellitus; Z87.891 Personal history of nicotine dependence; Z91.199 Patient's noncompliance with other medical treatment and regimen due to unspecified reason; Z79.84 Long term (current) use of oral hypoglycemic drugs
CPT/HCPCS: 36415; 36600; 71045; 73630; 73700; 76700; 78582; 80048; 80053; 80061; 80202; 81001; 82270; 82306; 82435; 82803; 82947; 82948; 83036; 83605; 83690; 83735; 83880; 84100; 84132; 84145; 84295; 84443; 84484; 84550; 85018; 85025; 85027; 85378; 85610; 85730; 87040; 87046; 87070; 87071; 87076; 87077; 87088; 87186; 87205; 87324; 87635; 87804; 87880; 88304; 92610; 93005; 93306; 93925; 93970; 94640; 94664; A9540; A9558; C1751; C1894; C9803; G0378; J0171; J0330; J0360; J0696; J1100; J1170; J1650; J1720; J1815; J1885; J1940; J2001; J2020; J2175; J2250; J2371; J2405; J2543; J2704; J2930; J2997; J3010; J3370; J3475; J3480; J3490; J7030; A4216; A4222; A4223; A4649; A6446; J1644

== ENCOUNTER 2023-04-18 19:08 | Emergency (ER) | payer MEDICARE ==
[~2023-04-18] VITALS: Ht 160 cm; Wt 94.8 kg
[2023-04-18 20:55] LABS: BASOPHILS # (AUTO) 0.04 K/uL (0.00-0.20); BASOPHILS % (AUTO) 0.5 % (0.0-5.0); EOSINOPHILS # (AUTO) 0.41 K/uL (0.00-0.70); EOSINOPHILS % (AUTO) 4.9 % (0.0-8.0); HEMATOCRIT 25.1 % (42-54); IMMATURE GRANULOCYTE ABSOLUTE 0.06 K/uL (0-1); LYMPHOCYTES # (AUTO) 1.9 K/uL (1.0-4.8); LYMPHOCYTES % (AUTO) 22.8 % (21.0-51.0); MEAN CORPUSCULAR HEMOGLOBIN 25.5 pg (27.0-33.0); MEAN CORPUSCULAR HGB CONC 29.5 g/dL (32.0-36.0); MEAN CORPUSCULAR VOLUME 86.6 fL (79-99); MONOCYTES # (AUTO) 0.7 K/uL (0.1-1.0); NEUTROPHILS # (AUTO) 5.3 K/uL (1.8-7.7); NEUTROPHILS % (AUTO) 63.1 % (40.0-77.0); PLATELET COUNT (AUTO) 348 K/uL (130-400); WHITE BLOOD COUNT (AUTO) 8.3 K/uL (4.8-10.8)
[2023-04-18 21:06] LABS: INR 1.02 (0.85-1.15); PROTHROMBIN TIME 11.8 SEC (9.6-11.6)
[2023-04-18 21:07] LABS: PARTIAL THROMBOPLASTIN TIME 31.9 SEC (26.3-35.5)
[2023-04-18 21:13] VITALS: BP 124/50; PULSE 74; RESP 14; O2SAT 98
[2023-04-18 21:14] LABS: CREATININE 0.7 mg/dL (0.5-1.5); POTASSIUM 4.9 mmol/L (3.5-5.1)
[2023-04-18 21:18] LABS: ALBUMIN 1.2 g/dL (3.5-5.0); BILIRUBIN,TOTAL 0.2 mg/dL (0.2-1.0); TOTAL PROTEIN, SERUM 6.5 g/dL (6.0-8.3)
[2023-04-18 21:32] LABS: B-TYPE NATRIURETIC PEPTIDE 154 pg/mL (0-100)
== END 2023-04-18 22:01 ==
LOC: EDH 19:08
DX: E11.9 Type 2 diabetes mellitus without complications (principal); D63.8 Anemia in other chronic diseases classified elsewhere; I10 Essential (primary) hypertension
CPT/HCPCS: 36415; 80053; 82550; 83880; 84484; 85025; 85610; 85730; 86850; 86900; 86901; 86923; 93005

== ENCOUNTER 2023-04-20 15:11 | Emergency (ER) | payer MEDICARE ==
[~2023-04-20] VITALS: Ht 160 cm; Wt 95.3 kg
[2023-04-20 16:11] LABS: BASOPHILS # (AUTO) 0.03 K/uL (0.00-0.20); BASOPHILS % (AUTO) 0.4 % (0.0-5.0); EOSINOPHILS # (AUTO) 0.35 K/uL (0.00-0.70); EOSINOPHILS % (AUTO) 4.7 % (0.0-8.0); HEMATOCRIT 22.6 % (42-54); IMMATURE GRANULOCYTE ABSOLUTE 0.05 K/uL (0-1); LYMPHOCYTES # (AUTO) 1.7 K/uL (1.0-4.8); MEAN CORPUSCULAR HEMOGLOBIN 25.6 pg (27.0-33.0); MEAN CORPUSCULAR HGB CONC 30.1 g/dL (32.0-36.0); MONOCYTES # (AUTO) 0.7 K/uL (0.1-1.0); MONOCYTES % (AUTO) 8.8 % (3.0-13.0); NEUTROPHILS # (AUTO) 4.7 K/uL (1.8-7.7); NEUTROPHILS % (AUTO) 62.4 % (40.0-77.0); PLATELET COUNT (AUTO) 287 K/uL (130-400); RED BLOOD CELL COUNT(AUTO) 2.66 MIL/uL (4.50-6.20); RED CELL DISTRIBUTION WIDTH 13.2 % (11.0-15.5); WHITE BLOOD COUNT (AUTO) 7.5 K/uL (4.8-10.8)
[2023-04-20 16:28] LABS: CREATININE 0.6 mg/dL (0.5-1.5); POTASSIUM 4.5 mmol/L (3.5-5.1)
[2023-04-20 16:33] LABS: ALBUMIN 1.1 g/dL (3.5-5.0); BILIRUBIN,TOTAL 0.1 mg/dL (0.2-1.0); TOTAL PROTEIN, SERUM 5.9 g/dL (6.0-8.3)
[2023-04-20 20:06] VITALS: BP 119/51; PULSE 74; RESP 18; O2SAT 95
== END 2023-04-20 20:47 | disposition home or self-care (01) ==
LOC: EDH 15:11
DX: E11.22 Type 2 diabetes mellitus with diabetic chronic kidney disease (principal); E11.621 Type 2 diabetes mellitus with foot ulcer; N18.9 Chronic kidney disease, unspecified; D63.1 Anemia in chronic kidney disease
CPT/HCPCS: 36430; 99285; 80053; 85025; 86850; 86900; 86901; 86923; 36415; P9016

== ENCOUNTER 2023-05-22 06:50 | Emergency (ER) | payer MEDICARE ==
[~2023-05-22] VITALS: Ht 170.2 cm; Wt 95.3 kg
[2023-05-22 07:21] LABS: BASOPHILS # (AUTO) 0.03 K/uL (0.00-0.20); BASOPHILS % (AUTO) 0.2 % (0.0-5.0); EOSINOPHILS # (AUTO) 0.14 K/uL (0.00-0.70); EOSINOPHILS % (AUTO) 1.1 % (0.0-8.0); HEMATOCRIT 24.8 % (42-54); IMMATURE GRANULOCYTE ABSOLUTE 0.07 K/uL (0-1); LYMPHOCYTES # (AUTO) 1.3 K/uL (1.0-4.8); LYMPHOCYTES % (AUTO) 10.4 % (21.0-51.0); MEAN CORPUSCULAR HEMOGLOBIN 25.9 pg (27.0-33.0); MEAN CORPUSCULAR HGB CONC 29.8 g/dL (32.0-36.0); MEAN CORPUSCULAR VOLUME 86.7 fL (79-99); MONOCYTES # (AUTO) 1.4 K/uL (0.1-1.0); MONOCYTES % (AUTO) 11.3 % (3.0-13.0); NEUTROPHILS # (AUTO) 9.5 K/uL (1.8-7.7); NEUTROPHILS % (AUTO) 76.4 % (40.0-77.0); PLATELET COUNT (AUTO) 266 K/uL (130-400); RED BLOOD CELL COUNT(AUTO) 2.86 MIL/uL (4.50-6.20); RED CELL DISTRIBUTION WIDTH 17.3 % (11.0-15.5); WHITE BLOOD COUNT (AUTO) 12.4 K/uL (4.8-10.8)
[2023-05-22 07:38] LABS: ALBUMIN 1.9 g/dL (3.5-5.0); BILIRUBIN,TOTAL 0.3 mg/dL (0.2-1.0); CREATININE 0.9 mg/dL (0.5-1.5); POTASSIUM 3.7 mmol/L (3.5-5.1); TOTAL PROTEIN, SERUM 6.4 g/dL (6.0-8.3)
[2023-05-22 07:48] LABS: B-TYPE NATRIURETIC PEPTIDE 98 pg/mL (0-100)
[2023-05-22 08:35] LABS: INR 1.07 (0.85-1.15); PROTHROMBIN TIME 12.4 SEC (9.6-11.6)
[2023-05-22 08:37] LABS: PARTIAL THROMBOPLASTIN TIME 30.2 SEC (26.3-35.5)
[2023-05-22 12:52] VITALS: BP 122/57; PULSE 85; RESP 18; O2SAT 99
== END 2023-05-22 12:53 | disposition home or self-care (01) ==
LOC: EDH 06:50
DX: S00.03XA Contusion of scalp, initial encounter (principal); D63.8 Anemia in other chronic diseases classified elsewhere; E11.621 Type 2 diabetes mellitus with foot ulcer; I11.0 Hypertensive heart disease with heart failure; I50.9 Heart failure, unspecified; I25.10 Atherosclerotic heart disease of native coronary artery without angina pectoris; W18.39XA Other fall on same level, initial encounter; Y93.89 Activity, other specified; Y92.89 Other specified places as the place of occurrence of the external cause; Y99.8 Other external cause status
CPT/HCPCS: 36415; 70450; 71045; 72125; 80053; 82550; 83735; 83880; 84484; 85025; 85610; 85730; 93005

== ENCOUNTER 2023-05-28 19:06 | Emergency (ER) | payer MEDICARE ==
[~2023-05-28] VITALS: Ht 160 cm; Wt 108.9 kg
[2023-05-28 20:11] LABS: BASOPHILS # (AUTO) 0.06 K/uL (0.00-0.20); BASOPHILS % (AUTO) 0.4 % (0.0-5.0); EOSINOPHILS # (AUTO) 0.62 K/uL (0.00-0.70); EOSINOPHILS % (AUTO) 4.1 % (0.0-8.0); HEMATOCRIT 26.2 % (42-54); IMMATURE GRANULOCYTE ABSOLUTE 0.29 K/uL (0-1); LYMPHOCYTES # (AUTO) 2.8 K/uL (1.0-4.8); LYMPHOCYTES % (AUTO) 18.2 % (21.0-51.0); MEAN CORPUSCULAR HEMOGLOBIN 26.2 pg (27.0-33.0); MEAN CORPUSCULAR HGB CONC 30.9 g/dL (32.0-36.0); MEAN CORPUSCULAR VOLUME 84.8 fL (79-99); MONOCYTES # (AUTO) 1.3 K/uL (0.1-1.0); MONOCYTES % (AUTO) 8.3 % (3.0-13.0); NEUTROPHILS # (AUTO) 10.2 K/uL (1.8-7.7); NEUTROPHILS % (AUTO) 67.1 % (40.0-77.0); PLATELET COUNT (AUTO) 312 K/uL (130-400); RED BLOOD CELL COUNT(AUTO) 3.09 MIL/uL (4.50-6.20); RED CELL DISTRIBUTION WIDTH 16.5 % (11.0-15.5); WHITE BLOOD COUNT (AUTO) 15.2 K/uL (4.8-10.8)
[2023-05-28 20:26] LABS: POTASSIUM 4.1 mmol/L (3.5-5.1)
[2023-05-28] MEDS ORDERED: FAMOTIDINE 20MG VIAL IV ONE (20:30)
[2023-05-28] MEDS ORDERED: DIAZEPAM 5 MG/ML 2 ML SYG IVP ONE (20:30)
[2023-05-28] MEDS ORDERED: NITROGLYCERIN 1GM OINT 1 INCH/1GM TD ONE (20:30)
[2023-05-28] MEDS ORDERED: ENOXAPARIN SODIUM 100 MG/1 ML SQ ONE (20:30)
[2023-05-28] MEDS ORDERED: ASPIRIN 325MG TAB PO ONE (20:30)
[2023-05-28] MEDS ORDERED: KETOROLAC 30MG VIAL (30MG/ML) IVP ONE (20:30)
[2023-05-28] MEDS ORDERED: 0.9%NACL 1000ML 1,000 ML IV ONE (20:30)
[2023-05-28 20:35] LABS: ALBUMIN 2.1 g/dL (3.5-5.0); BILIRUBIN,TOTAL 0.3 mg/dL (0.2-1.0); TOTAL PROTEIN, SERUM 6.6 g/dL (6.0-8.3)
[2023-05-28 23:07] LABS: APPEARANCE,URINE CLOUDY (CLEAR); BILIRUBIN,URINE NEGATIVE (NEGATIVE); COLOR,URINE YELLOW (YELLOW); GLUCOSE, URINE (UA) NEGATIVE (NEGATIVE); KETONES,URINE NEGATIVE (NEGATIVE); LEUKOCYTE ESTERASE ,URINE 500 Leu/uL (NEGATIVE); NITRATE,URINE NEGATIVE (NEGATIVE); OCCULT BLOOD,URINE MODERATE (NEGATIVE); PH,URINE 5.5 (5.0-8.0); PROTEIN,URINE 50 mg/dL (NEGATIVE); UROBILINOGEN,URINE 0.2 mg/dL (0.2-1.0)
[2023-05-28 23:12] LABS: ADD UA MICROSCOPIC YES
[2023-05-28 23:26] LABS: BACTERIA,URINE FEW /HPF (None Seen); CALCIUM OXALATE CRYSTALS,UR RARE /LPF (None Seen); MUCUS,URINE RARE LPF (None Seen); SQUAMOUS EPITHELIAL CELL,UR FEW /HPF (0-2); WBC CLUMP FEW /HPF (0-1); WBC,URINE TNTC /HPF (0-1)
[2023-05-28] MEDS ORDERED: CEPH500B PO (23:42)
[2023-05-28] MEDS ORDERED: CYCL10TA16 PO (23:42)
[2023-05-29] MEDS ORDERED: CEFTRIAXONE 2GM VIAL IVPB ONE
[2023-05-29 01:22] VITALS: BP 126/70; PULSE 80; RESP 18; O2SAT 97
== END 2023-05-29 01:25 | disposition home or self-care (01) ==
LOC: EDH 19:06
DX: M62.830 Muscle spasm of back (principal); N39.0 Urinary tract infection, site not specified; E11.9 Type 2 diabetes mellitus without complications; I10 Essential (primary) hypertension; I25.10 Atherosclerotic heart disease of native coronary artery without angina pectoris
CPT/HCPCS: 99285; 96374; 71045; 96361; 96375; 82550; 84484; 80053; 85025; 87040 ×2; 87077; 87088; 87186; 83605; 81001; 36415; 96372; 93005; 96365; J3490; J7030; J3360; J1650; J1885; J0696

== ENCOUNTER → 2023-12-14 | Outpatient (CLI) | payer OTHER ==
[~2023-12-14] MED LIST: ACET-2079 PO; AEC81 PO; AMLO-258 PO; CHOL-34 PO; CLOP-31 PO; CYAN-52 PO; CYCL-309 PO; FAMO20TA8 PO; FOLI1 PO; FURO20TA6 PO; HYDR-3421 PO; INSLAN SQ; INSREG SQ; METO25TA6 PO; MIDO10TA PO; MULT-1367 PO; ZINC50TA64 PO
== END | disposition home or self-care (01) ==
LOC: WHH 08:09
PROVIDERS: ATTEND Family Medicine
DX: E11.622 Type 2 diabetes mellitus with other skin ulcer (principal); L97.822 Non-pressure chronic ulcer of other part of left lower leg with fat layer exposed; E11.621 Type 2 diabetes mellitus with foot ulcer; L97.522 Non-pressure chronic ulcer of other part of left foot with fat layer exposed; S81.802A Unspecified open wound, left lower leg, initial encounter; S91.302A Unspecified open wound, left foot, initial encounter; I25.10 Atherosclerotic heart disease of native coronary artery without angina pectoris; I11.0 Hypertensive heart disease with heart failure; I50.9 Heart failure, unspecified; E66.9 Obesity, unspecified; Z68.33 Body mass index [BMI] 33.0-33.9, adult; Z79.01 Long term (current) use of anticoagulants; Z87.891 Personal history of nicotine dependence; Z79.82 Long term (current) use of aspirin; Z79.899 Other long term (current) drug therapy; X58.XXXA Exposure to other specified factors, initial encounter; Y93.89 Activity, other specified; Y92.89 Other specified places as the place of occurrence of the external cause; Y99.8 Other external cause status
CPT/HCPCS: 11042; 11045; A6209; A4450

== ENCOUNTER → 2023-12-21 | Outpatient (CLI) | payer OTHER ==
[~2023-12-21] MED LIST changes: +HONEY 1 APPL/ML TUBE TP ONE; +LIDOCAINE HCL 4% LTA SOL 4 ML VIAL TP ONE
== END | disposition home or self-care (01) ==
LOC: WHH 08:10
PROVIDERS: ATTEND Family Medicine
DX: E11.622 Type 2 diabetes mellitus with other skin ulcer (principal); L97.822 Non-pressure chronic ulcer of other part of left lower leg with fat layer exposed; E11.621 Type 2 diabetes mellitus with foot ulcer; L97.522 Non-pressure chronic ulcer of other part of left foot with fat layer exposed; S81.802D Unspecified open wound, left lower leg, subsequent encounter; S91.302D Unspecified open wound, left foot, subsequent encounter; I25.10 Atherosclerotic heart disease of native coronary artery without angina pectoris; I11.0 Hypertensive heart disease with heart failure; I50.9 Heart failure, unspecified; E66.9 Obesity, unspecified; Z68.33 Body mass index [BMI] 33.0-33.9, adult; Z79.01 Long term (current) use of anticoagulants; Z87.891 Personal history of nicotine dependence; Z79.82 Long term (current) use of aspirin; Z79.899 Other long term (current) drug therapy; Y83.8 Other surgical procedures as the cause of abnormal reaction of the patient, or of later complication, without mention of misadventure at the time of the procedure
CPT/HCPCS: G0463; A6209

== ENCOUNTER → 2023-12-28 | Outpatient (CLI) | payer OTHER ==
[~2023-12-28] MED LIST changes: -HONEY 1 APPL/ML TUBE TP ONE; -LIDOCAINE HCL 4% LTA SOL 4 ML VIAL TP ONE
== END | disposition home or self-care (01) ==
LOC: WHH 08:17
PROVIDERS: ATTEND Family Medicine
DX: E11.622 Type 2 diabetes mellitus with other skin ulcer (principal); L97.822 Non-pressure chronic ulcer of other part of left lower leg with fat layer exposed; E11.621 Type 2 diabetes mellitus with foot ulcer; L97.522 Non-pressure chronic ulcer of other part of left foot with fat layer exposed; S81.802D Unspecified open wound, left lower leg, subsequent encounter; S91.302D Unspecified open wound, left foot, subsequent encounter; I25.10 Atherosclerotic heart disease of native coronary artery without angina pectoris; I11.0 Hypertensive heart disease with heart failure; I50.9 Heart failure, unspecified; E66.9 Obesity, unspecified; Z68.33 Body mass index [BMI] 33.0-33.9, adult; Z79.01 Long term (current) use of anticoagulants; Z87.891 Personal history of nicotine dependence; Z79.82 Long term (current) use of aspirin; Z79.899 Other long term (current) drug therapy; X58.XXXD Exposure to other specified factors, subsequent encounter
CPT/HCPCS: G0463; A6209

== ENCOUNTER → 2024-01-04 | Outpatient (CLI) | payer OTHER ==
[~2024-01-04] MED LIST changes: +LIDOCAINE HCL 4% LTA SOL 4 ML VIAL TP ONE
== END | disposition home or self-care (01) ==
LOC: WHH 08:20
PROVIDERS: ATTEND Family Medicine
DX: E11.622 Type 2 diabetes mellitus with other skin ulcer (principal); L97.822 Non-pressure chronic ulcer of other part of left lower leg with fat layer exposed; E11.621 Type 2 diabetes mellitus with foot ulcer; L97.522 Non-pressure chronic ulcer of other part of left foot with fat layer exposed; S81.802D Unspecified open wound, left lower leg, subsequent encounter; I25.10 Atherosclerotic heart disease of native coronary artery without angina pectoris; I11.0 Hypertensive heart disease with heart failure; I50.9 Heart failure, unspecified; E66.9 Obesity, unspecified; Z68.33 Body mass index [BMI] 33.0-33.9, adult; Z79.01 Long term (current) use of anticoagulants; Z87.891 Personal history of nicotine dependence; Z79.82 Long term (current) use of aspirin; Z79.899 Other long term (current) drug therapy; X58.XXXD Exposure to other specified factors, subsequent encounter
CPT/HCPCS: G0463; A6209; A6197; A4450

== ENCOUNTER 2024-07-23 06:12 | Emergency (ER) | payer OTHER, MEDICARE ==
[~2024-07-23] VITALS: Ht 160 cm; Wt 81.6 kg
[~2024-07-23 06:12] MED LIST changes: -CLOP-31 PO; +CLOP75TA32 PO; -CYCL-309 PO; -LIDOCAINE HCL 4% LTA SOL 4 ML VIAL TP ONE; -MIDO10TA PO; +MIDO10TA3 PO; +POTA-364 PO
--- NOTE | 2024-07-23 06:20 | NUR ---
REPORT TO DIPESH LARA FOR BEDDING
--- NOTE | 2024-07-23 06:22 | NUR ---
PT WILL GO TO ROOM 17 ONCE CLEAN PER VICENTE LARA
--- NOTE | 2024-07-23 07:23 | ERN ---
General Chief Complaint: Hypertension Stated Complaint: HYPERTENSION Time Seen by MD: 06:58 History of Present Illness Initial Comments 68-year-old male who presents for hypertension and sweating. Patient reports that about a week ago he had diarrhea and vomiting, he had episodes where his blood pressure was in the normal range. Since then he did not take his blood pressure medications. He reports that last night approximately 2 hours prior to arrival he woke up and felt like he was sweating. . He felt a little bit a nxious. Denies dizziness headache vision changes chest pain shortness of breath or other symptom. He report he took his blood pressure at home and it was 190 systolic. He took 10mg Norvasc and came to the ER for hypertension. NIHSS of 0. Allergies: Coded Allergies: No Known Allergies (Unverified Allergy, Unknown, 03/03/23) Home Meds Reported Medications Amlodipine Besylate (Amlodipine Besylate) 10 Mg Tablet, 10 MG PO DAILY for 30 Days, #30 TAB 0 Refills 01/15/24 Clopidogrel Bisulfate (Clopidogrel) 75 Mg Tablet, 75 MG PO DAILY, TAB 01/15/24 Potassium Chloride (Potassium Chloride) 20 Meq Tablet.er, 20 MEQ PO DAILY, TAB 01/15/24 Midodrine HCl (Midodrine HCl) 10 Mg Tablet, 10 MG PO DAILY, TAB 24 Zinc Amino Acid Chelate (Zinc) 50 Mg Tablet, 50 MG PO DAILY, TAB 24 Cholecalciferol (Vitamin D3) (Vitamin D3) 25 Mcg (1000 Unit) Tablet, 25 MCG PO DAILY, TAB 24 Acetaminophen with Codeine (Acetaminophen-Cod #3 Tablet) 300 Mg-30 Mg Tablet, 1 EACH PO Q6HPRN PRN for PAIN, TAB 08/25/23 Multivitamin (Multivitamin) 1 Each Tablet, 1 EACH PO DAILY, TAB 24 Metoprolol Tartrate (Metoprolol Tartrate) 25 Mg Tablet, 25 MG PO BID, TAB 24 Furosemide (Lasix 20Mg Tab) 20 Mg Tablet, 20 MG PO BID, TAB 24 Insulin Glargine,Hum.rec.anlog (Lantus) 100 Unit/Ml Inj, 10 UNITS SQ DAILY, ML 08/25/23 Hydroxyzine HCl (Hydroxyzine HCl) 25 Mg Tablet, 25 MG PO Q6HPRN PRN for ITCHING, TAB 08/25/23 Insulin Regular, Human (Novolin R) 100 Unit/Ml Vial, 0 SQ AD, VIAL 08/25/23 Folic Acid (Folvite) 1 Mg Tab, 1 MG PO DAILY, TAB 08/25/23 Famotidine (Famotidine) 20 Mg Tablet, 20 MG PO DAILY, TAB 08/25/23 Cyanocobalamin (Vitamin B-12) (Vitamin B-12) 1,000 Mcg Tablet, 1000 MCG PO DA ROB, TAB 08/25/23 Aspirin (ASPIRIN 81 MG ECTAB) 81 Mg Ectab, 81 MG PO DAILY, TAB.EC 08/25/23 Past Medical History Past Medical History: CAD, Diabetes-Type II, Hypertension Medical History Other: FALLS, SEPSIS, ANGINA Past Surgical History: Other Surgical History Other: LEFT BKA Family History Family History: Negative Social History Social History: Negative, Lives in Senior [facility] ROS Dictation CONSTITUTIONAL: No chills, no fever, no weakness, no diaphoresis, no malaise. HEAD/FACE: No signs of trauma. EENT: No eye pain, no blurred vision, no tearing, no double vision, no ear pain, no ear discharge, no nose pain, no nasal congestion, no throat pain, no throat swelling, no mouth pain. RESPIRATORY: No cough, no orthopnea, no SOB, no stridor, no wheezing. CARDIOVASCULAR: No chest pain, no edema, no palpitations, no syncope. GASTROINTESTINAL/ABDOMINAL: No abdominal pain, no constipation, no diarrhea, no nausea, no vomiting. GENITOURINARY: No abnormal discharge, no dysuria, no frequent urination, no hematuria. No complaints of pain in the genitals. MUSCULOSKELETAL: No back pain, no gout, no joint pain, no joint swelling, no muscle pain, no muscle stiffness, no neck pain. INTEGUMENTARY: No change in color, no change in hair/nails, no dryness, no lesion, no lumps, no rash. NEUROLOGICAL/PSYCH: He reports anxiety, not depressed, no emotional problem, no headache, no numbness, no pre-existing deficit, no history of seizures, no tremors, no weakness. HEMATOLOGIC/LYMPHATIC: Not anemic, no history of blood clots, no apparent bleeding, no bruising, glands not swollen. All Systems Negative, Except as Noted. Physical Exam Physical Exam Dictation VITAL SIGNS: Reviewed. GENERAL APPEARANCE: Alert, oriented x3, no acute distress EYES: PERRL, pink conjunctivas, eyelid no trauma, anterior chamber clear. EARS: Pinnas intact and no signs of trauma or erythema. Ear canals clear and no discharge. TMs no erythema. NOSE: No discharge, no bleeding. OROPHARYNX: Mouth normal, teeth no caries, tongue pink. Pharynx clear, no er ythema. Tonsils no exudates, no abscesses noted. Mucous membrane moist. NECK: Supple, non-tender, no thyromegaly, no masses, no JVD, no bruits. BREAST: Deferred. CHEST: No tenderness, no crepitus, no paradoxical movement, no retractions. LUNGS: Clear, well-ventilated, symmetric, no rales, no wheezing, no rhonchi, no stridor, good breath sounds bilaterally. HEART: Regular rate, regular rhythm, no murmur, no gallops. VASCULAR: No peripheral edema. ABDOMEN: Soft, positive bowel sounds, nondistended, no guarding, nontender, no rebound, no masses no hepatomegaly, no splenomegaly, no Almazan's sign, no hernias. RECTAL: Deferred. GENITAL: Deferred. NEUROLOGICAL: Normal speech, gross motor function intact, gross sensory function intact. MUSCULOSKELETAL: Neck nontender, full range of motion, back nontender, full range of motion. Left AKA EXTREMITIES: Nontender, full range of motion. SKIN: Color pink, dry, no turgor, no rash, no lacerations, no abrasions, no contusions. LYMPHATICS: Deferred. Results Laboratory and Microbiology Lab and Micro Result Laboratory Tests Test 07/23/24 07:48 07/23/24 09:17 White Blood Count 6.7 K/uL (4.8-10.8) Red Blood Count 4.75 MIL/uL (4.50-6.20) Hemoglobin 12.3 g/dL (14.0-18.0) L Hematocrit 39.4 % (42-54) L Mean Corpuscular Volume 82.9 fL (79-99) Mean Corpuscular Hemoglobin 25.9 pg (27.0-33.0) L Mean Corpuscular Hemoglobin Concent 31.2 g/dL (32.0-36.0) L Red Cell Distribution Width 14.6 % (11.0-15.5) Platelet Count 192 K/uL (130-400) Mean Platelet Volume 10.0 fL (7.5-10.5) Immature Granulocyte % (Auto) 0.1 % (0-1) Neutrophils (%) (Auto) 62.1 % (40.0-77.0) Lymphocytes (%) (Auto) 25.1 % (21.0-51.0) Monocytes (%) (Auto) 8.1 % (3.0-13.0) Eosinophils (%) (Auto) 3.7 % (0.0-8.0) Basophils (%) (Auto) 0.9 % (0.0-5.0) Neutrophils # (Auto) 4.2 K/uL (1.8-7.7) Lymphocytes # (Auto) 1.7 K/uL (1.0-4.8) Monocytes # (Auto) 0.5 K/uL (0.1-1.0) Eosinophils # (Auto) 0.25 K/uL (0.00-0.70) Basophils # (Auto) 0.06 K/uL (0.00-0.20) Absolute Immature Granulocyte (auto 0.01 K/uL (0-1) Nucleated Red Blood Cells 0.0 % (0.0-0.19) Prothrombin Time 11.2 SEC (9.6-11.6) Prothromb Time International Ratio 1.06 (0.85-1.15) Sodium Level 140 mmol/L (136-145) Potassium Level 4.4 mmol/L (3.5-5.1) Chloride Level 101 mmol/L (101-111) Carbon Dioxide Level 32 mmol/L (21-32) Blood Urea Nitrogen 28 mg/dL (7-18) H Creatinine 0.8 mg/dL (0.5-1.3) Glomerular Filtration Rate Calc 97 mL/min (>90) Random Glucose 109 mg/dL (70-105) H Lactic Acid Level 0.9 mmol/L (0.8-2.5) Total Calcium 8.6 mg/dL (8.5-10.1) Total Bilirubin 0.4 mg/dL (0.2-1.0) Direct Bilirubin 0.1 mg/dL (0.0-0.3) Aspartate Amino Transf (AST/SGOT) 16 U/L (10-37) Alanine Aminotransferase (ALT/SGPT) 25 U/L (12-78) Alkaline Phosphatase 82 U/L (50-136) Total Creatine Kinase 54 U/L (21-232) Troponin I High Sensitivity 11.5 ng/L (4-75) 12 ng/L (4-75) B-Type Natriuretic Peptide 30 pg/mL (0-100) Total Protein 6.8 g/dL (6.0-8.3) Albumin 3.5 g/dL (3.5-5.0) Procalcitonin < 0.05 ng/mL (0.05-0.5) L MDM CC: "Sweating", anxiety, hypertension Historian: Patient Comorbidities: CAD, HTN, DM2 Limitations by social determinants of health: None Differential diagnosis: Hypertension, hypertensive urgency, CAD, renal failure, other. Initial blood pressure 206/90. This improved in the ER with treatment. Other vital signs stable. EKG shows sinus rhythm, rate of 72, normal axis, good R-wave progression, intervals stable. No STEMI. Independently interpreted by me. Labs (independently ordered and interpreted by me ): The CBC shows a mild normocytic anemia hemoglobin 12.3 otherwise unremarkable. Coags are normal. BNP normal. Lactic acid normal. Liver enzymes normal. Troponin x2 normal. BNP normal. Procalcitonin normal. CXR (independently ordered and interpreted by me): No acute abnormalities, no pneumothorax, normal pulmonary vascularity. Treatment in ED: 20 mg IV hydralazine Reassessment: Asymptomatic, blood pressure is stable. Plan: We will discharge recommend that he continues with his Norvasc and follows up with his PCP here. Patient agrees with the plan. ED Course Orders Procedure Category Date Status Time Cbc With Differential LAB 07/23/24 Complete 06:28 Prothrombin Time With LAB 07/23/24 Complete INR 06:28 B-Type Natriuretic LAB 07/23/24 Complete Peptide 06:28 Chest 1vw RAD 07/23/24 Resulted 06:28 12 Lead Ekg Tracing- EKG 07/23/24 Logged Technical 06:28 Creatine Kinase, Total LAB 07/23/24 Complete 06:28 Urinalysis Profile LAB 07/23/24 Logged 06:28 Basic Metabolic Panel LAB 07/23/24 Complete 06:28 Blood Cult BRENNAN 07/23/24 Logged 06:28 Culture Urine BRENNAN 07/23/24 Logged 06:28 Procalcitonin LAB 07/23/24 Complete 06:28 Lactic Acid LAB 07/23/24 Complete 06:28 Hepatic Function Panel LAB 07/23/24 Complete 06:28 Cardiac Panel LAB 07/23/24 Complete 06:28 Hydralazine 20mg Inj PHA 07/23/24 Complete (Apresoline 20mg In 08:00 Troponin I High LAB 07/23/24 Complete Sensitivity 08:28 Current Medications Medications (Trade) Dose Ordered Sig/Esther Route PRN Reason Start Time Stop Time Status Last Admin Dose Admin Hydralazine HCl (APRESOLine 20MG INJ) 20 mg ONCE ONCE IV 07/23/24 08:00 07/23/24 08:01 DC 07/23/24 08:00 Vital Signs Date Time Temp Pulse Resp B/P (MAP) Pulse Ox O2 Delivery O2 Flow Rate FiO2 07/23/24 08:24 97.9 78 19 154/61 98 Room Air* 0 21 07/23/24 08:04 97.9 72 10 181/78 96 Room Air* 0 21 07/23/24 06:13 97.0 74 16 206/90 98 Room Air DX & DISP Disposition: Discharge Departure Impression: Primary Impression: Hypertensive urgency Condition: Stable Additional Instructions: Your symptoms are consistent with the elevated blood pressure, or hypertensive urgency. Your blood pressure was elevated here in the ER. It was improved with treatment. Your EKG is stable. Your chest x-ray is stable. Your lab work (CBC, BMP, lactic acid, liver function tests, CK, troponin, BNP, coags) is unremarkable. I recommend that you continue taking your amlodipine daily (10 mg) as already prescribed. Please follow up with your primary doctor later this week for re-evaluation. Return to the emergency department as needed. Referrals: CHUCK NESBITT MD (PCP) NORMA ORTEGA DO Jul 23, 2024 07:23
--- NOTE | 2024-07-23 07:41 | HMCIMG ---
PORTABLE CHEST RADIOGRAPH INDICATION: chest pain HTN COMPARISON: 09/04/2023 FINDINGS: Heart size is normal. The pulmonary vascularity and karthik appear normal. No abnormal pulmonary parenchymal opacity or consolidation identified. No significant pleural effusion noted. No pneumothorax detected. IMPRESSION: No radiographic evidence for any acute cardiopulmonary process.
[2024-07-23 07:57] LABS: BASOPHILS # (AUTO) 0.06 K/uL (0.00-0.20); BASOPHILS % (AUTO) 0.9 % (0.0-5.0); EOSINOPHILS # (AUTO) 0.25 K/uL (0.00-0.70); EOSINOPHILS % (AUTO) 3.7 % (0.0-8.0); HEMATOCRIT 39.4 % (42-54); IMMATURE GRANULOCYTE ABSOLUTE 0.01 K/uL (0-1); LYMPHOCYTES # (AUTO) 1.7 K/uL (1.0-4.8); LYMPHOCYTES % (AUTO) 25.1 % (21.0-51.0); MEAN CORPUSCULAR HEMOGLOBIN 25.9 pg (27.0-33.0); MEAN CORPUSCULAR HGB CONC 31.2 g/dL (32.0-36.0); MEAN CORPUSCULAR VOLUME 82.9 fL (79-99); MONOCYTES # (AUTO) 0.5 K/uL (0.1-1.0); MONOCYTES % (AUTO) 8.1 % (3.0-13.0); NEUTROPHILS # (AUTO) 4.2 K/uL (1.8-7.7); NEUTROPHILS % (AUTO) 62.1 % (40.0-77.0); PLATELET COUNT (AUTO) 192 K/uL (130-400); RED BLOOD CELL COUNT(AUTO) 4.75 MIL/uL (4.50-6.20); RED CELL DISTRIBUTION WIDTH 14.6 % (11.0-15.5); WHITE BLOOD COUNT (AUTO) 6.7 K/uL (4.8-10.8)
[2024-07-23] MEDS: hydrALAZine 20MG/ML VIAL IV ONE (08:00)
[2024-07-23 08:07] LABS: CREATININE 0.8 mg/dL (0.5-1.3); INR 1.06 (0.85-1.15); POTASSIUM 4.4 mmol/L (3.5-5.1); PROTHROMBIN TIME 11.2 SEC (9.6-11.6)
[2024-07-23 08:14] LABS: ALBUMIN 3.5 g/dL (3.5-5.0); BILIRUBIN,DIRECT 0.1 mg/dL (0.0-0.3); BILIRUBIN,TOTAL 0.4 mg/dL (0.2-1.0); TOTAL PROTEIN, SERUM 6.8 g/dL (6.0-8.3)
[2024-07-23 08:24] VITALS: TEMP 97.9
[2024-07-23 08:38] LABS: B-TYPE NATRIURETIC PEPTIDE 30 pg/mL (0-100)
[2024-07-23 10:18] VITALS: BP 106/53; PULSE 72; RESP 18; O2SAT 98
--- NOTE | 2024-07-23 13:29 | EKG ---
[facility] Test Date: 2024-07-23 Test Time: 06:37:16 Pat Name: SHAWANDA GARCIA Department: ED Room: Gender: M Guest Request Runner: [id number] : [id number] Requested By: NORMA ORTEGA Order Number: [id number] Reading MD: Taylor Chester Measurements Intervals [place] Rate: 72 P: 34 RI: 169 QRS: 3 QRSD: 92 T: 35 QT: 391 QTc: 428 Interpretive Statements Sinus rhythm Low voltage, precordial leads Compared to ECG 01/14/2024 14:52:47 No significant changes Electronically Signed On 07-24-2024 15:37:16 TEST ENGINE MECHANIC by Taylor Chester Please click the below link to view image of tracing.
== END 2024-07-23 10:45 | disposition home or self-care (01) ==
LOC: EDH 06:12
DX: I16.0 Hypertensive urgency (principal); I25.10 Atherosclerotic heart disease of native coronary artery without angina pectoris; E11.9 Type 2 diabetes mellitus without complications; F41.9 Anxiety disorder, unspecified; I10 Essential (primary) hypertension; Z79.02 Long term (current) use of antithrombotics/antiplatelets; Z79.4 Long term (current) use of insulin; Z79.82 Long term (current) use of aspirin; Z79.899 Other long term (current) drug therapy; Z89.512 Acquired absence of left leg below knee
CPT/HCPCS: 99285; 96374; 71045; 82550; 80076; 84484 ×2; 80048; 83880; 85025; 85610; 83605; 36415; 93005; 84145; J0360

== ENCOUNTER 2024-08-01 00:02 | Emergency (ER) | payer OTHER, MEDICARE ==
[~2024-08-01] VITALS: Ht 160 cm; Wt 86.2 kg
[2024-08-01 03:18] LABS: BASOPHILS # (AUTO) 0.05 K/uL (0.00-0.20); BASOPHILS % (AUTO) 0.6 % (0.0-5.0); EOSINOPHILS # (AUTO) 0.24 K/uL (0.00-0.70); HEMATOCRIT 35.8 % (42-54); IMMATURE GRANULOCYTE ABSOLUTE 0.02 K/uL (0-1); LYMPHOCYTES # (AUTO) 2.1 K/uL (1.0-4.8); LYMPHOCYTES % (AUTO) 26.4 % (21.0-51.0); MEAN CORPUSCULAR HEMOGLOBIN 26.1 pg (27.0-33.0); MEAN CORPUSCULAR HGB CONC 30.7 g/dL (32.0-36.0); MEAN CORPUSCULAR VOLUME 84.8 fL (79-99); MONOCYTES # (AUTO) 0.7 K/uL (0.1-1.0); NEUTROPHILS # (AUTO) 4.9 K/uL (1.8-7.7); NEUTROPHILS % (AUTO) 60.8 % (40.0-77.0); PLATELET COUNT (AUTO) 169 K/uL (130-400); RED BLOOD CELL COUNT(AUTO) 4.22 MIL/uL (4.50-6.20); RED CELL DISTRIBUTION WIDTH 14.8 % (11.0-15.5); WHITE BLOOD COUNT (AUTO) 8.1 K/uL (4.8-10.8)
[2024-08-01 03:20] LABS: CREATININE 0.9 mg/dL (0.5-1.3); POTASSIUM 4.2 mmol/L (3.5-5.1)
[2024-08-01 04:02] LABS: B-TYPE NATRIURETIC PEPTIDE 24 pg/mL (0-100)
--- NOTE | 2024-08-01 04:48 | ERN ---
General Chief Complaint: Hypertension Stated Complaint: HYPERTENSION Time Seen by MD: 00:32 Time Seen by Midlevel: 00:32 Source: patient History of Present Illness Initial Comments Patient is a 68-year-old male with a past medical history of type 2 diabetes, hyperlipidemia, hypertension, and coronary artery disease presenting to the emergency department for elevated blood pressure reading at home. The patient reports waking up this morning and checked his blood pressure and states it was 120 systolic so he reports taking his lisinopril 2.5 mg but not take his amlodipine. He states that around 2200 tonight he woke up with a not feeling he reports checking his glucose and rechecked his blood pressure and it was 142 systolic so he decided to report to the ER for further evaluation. On arrival he denies any other complaints Allergies: Coded Allergies: No Known Allergies (Unverified Allergy, Unknown, 03/03/23) Home Meds Reported Medications Amlodipine Besylate (Amlodipine Besylate) 10 Mg Tablet, 10 MG PO DAILY for 30 Days, #30 TAB 0 Refills 01/15/24 Clopidogrel Bisulfate (Clopidogrel) 75 Mg Tablet, 75 MG PO DAILY, TAB 01/15/24 Potassium Chloride (Potassium Chloride) 20 Meq Tablet.er, 20 MEQ PO DAILY, TAB 01/15/24 Midodrine HCl (Midodrine HCl) 10 Mg Tablet, 10 MG PO DAILY, TAB 24 Zinc Amino Acid Chelate (Zinc) 50 Mg Tablet, 50 MG PO DAILY, TAB 24 Cholecalciferol (Vitamin D3) (Vitamin D3) 25 Mcg (1000 Unit) Tablet, 25 MCG PO DAILY, TAB 24 Acetaminophen with Codeine (Acetaminophen-Cod #3 Tablet) 300 Mg-30 Mg Tablet, 1 EACH PO Q6HPRN PRN for PAIN, TAB 08/25/23 Multivitamin (Multivitamin) 1 Each Tablet, 1 EACH PO DAILY, TAB 24 Metoprolol Tartrate (Metoprolol Tartrate) 25 Mg Tablet, 25 MG PO BID, TAB 24 Furosemide (Lasix 20Mg Tab) 20 Mg Tablet, 20 MG PO BID, TAB 24 Insulin Glargine,Hum.rec.anlog (Lantus) 100 Unit/Ml Inj, 10 UNITS SQ DAILY, ML 08/25/23 Hydroxyzine HCl (Hydroxyzine HCl) 25 Mg Tablet, 25 MG PO Q6HPRN PRN for ITCHING, TAB 08/25/23 Insulin Regular, Human (Novolin R) 100 Unit/Ml Vial, 0 SQ AD, VIAL 08/25/23 Folic Acid (Folvite) 1 Mg Tab, 1 MG PO DAILY, TAB 08/25/23 Famotidine (Famotidine) 20 Mg Tablet, 20 MG PO DAILY, TAB 08/25/23 Cyanocobalamin (Vitamin B-12) (Vitamin B-12) 1,000 Mcg Tablet, 1000 MCG PO DAILY, TAB 08/25/23 Aspirin (ASPIRIN 81 MG ECTAB) 81 Mg Ectab, 81 MG PO DAILY, TAB.EC 08/25/23 Past Medical History Past Medical History: CAD, Diabetes-Type II, High Cholesterol, Hypertension Medical History Other: FALLS, SEPSIS, ANGINA Past Surgical History: Other Surgical History Other: LEFT BKA Family History Family History: Negative Social History Social History: Negative, Lives in Assisted ROS Dictation CONSTITUTIONAL: Negative except for HPI HEAD/FACE: Negative except for HPI EENT: Negative except for HPI RESPIRATORY: Negative except for HPI GASTROINTESTINAL/ABDOMINAL: Negative except for HPI GENITOURINARY: Negative except for HPI MUSCULOSKELETAL: Negative except for HPI INTEGUMENTARY: Negative except for HPI NEUROLOGICAL/PSYCH: Negative except for HPI HEMATOLOGIC/LYMPHATIC: Negative except for HPI All Systems Negative, Except as noted above. 13 point review of systems assessed and all negative except for above. Physical Exam Physical Exam Dictation Vital Signs reviewed General Appearance: Alert, oriented x 3, no acute distress, well developed, nourished. Head and Face: non-traumatic. Eyes: PERRL, pink conjunctivas, eyelid no trauma, anterior chamber with arcus senilis. Ears: Pinnas intact and no signs of trauma or erythema ear canals clear and no discharge TM no erythema Nose: No discharge, no bleeding. Oropharynx: Mouth normal, tongue pink, pharynx clear,no erythema, tonsils no exudates, no abscesses noted, mucous membrane moist Neck: Supple, non-tender, no thyromegaly, no masses, no JVD, no bruits Breast:Deferred Chest:No tenderness, no crepitus, no paradoxical movement, no retractions Lungs:Clear, well-ventilated, symmetric, no rales, no wheezing, no rhonchi, no stridor, good breath sounds bilaterally Heart: Regular rate, regular rhythm, no murmur, no gallops Vascular: no peripheral edema, Abdomen: Soft, positive bowel sounds, nondistended, no guarding, nontender, no rebound, no masses no hepatomegaly, no splenomegaly, no Almazan's sign, no hernias. Rectal: Deferred Genital: Deferred Neurological: Normal speech, motor function intact, sensory function intact Musculoskeletal: Neck nontender, full range of motion, back nontender, full ran ge of motion, Extremities: nontender, full range of motion Skin: Color pink, dry, no turgor, no rash, no lacerations, no abrasions, no contusions. Lymphatic: Deferred Results Laboratory and Microbiology Lab and Micro Result Laboratory Tests Test 08/01/24 02:42 White Blood Count 8.1 K/uL (4.8-10.8) Red Blood Count 4.22 MIL/uL (4.50-6.20) L Hemoglobin 11.0 g/dL (14.0-18.0) L Hematocrit 35.8 % (42-54) L Mean Corpuscular Volume 84.8 fL (79-99) Mean Corpuscular Hemoglobin 26.1 pg (27.0-33.0) L Mean Corpuscular Hemoglobin Concent 30.7 g/dL (32.0-36.0) L Red Cell Distribution Width 14.8 % (11.0-15.5) Platelet Count 169 K/uL (130-400) Mean Platelet Volume 10.3 fL (7.5-10.5) Immature Granulocyte % (Auto) 0.2 % (0-1) Neutrophils (%) (Auto) 60.8 % (40.0-77.0) Lymphocytes (%) (Auto) 26.4 % (21.0-51.0) Monocytes (%) (Auto) 9.0 % (3.0-13.0) Eosinophils (%) (Auto) 3.0 % (0.0-8.0) Basophils (%) (Auto) 0.6 % (0.0-5.0) Neutrophils # (Auto) 4.9 K/uL (1.8-7.7) Lymphocytes # (Auto) 2.1 K/uL (1.0-4.8) Monocytes # (Auto) 0.7 K/uL (0.1-1.0) Eosinophils # (Auto) 0.24 K/uL (0.00-0.70) Basophils # (Auto) 0.05 K/uL (0.00-0.20) Absolute Immature Granulocyte (auto 0.02 K/uL (0-1) Nucleated Red Blood Cells 0.0 % (0.0-0.19) Red Blood Cell Morphology See comments Sodium Level 138 mmol/L (136-145) Potassium Level 4.2 mmol/L (3.5-5.1) Chloride Level 105 mmol/L (101-111) Carbon Dioxide Level 31 mmol/L (21-32) Blood Urea Nitrogen 32 mg/dL (7-18) H Creatinine 0.9 mg/dL (0.5-1.3) Glomerular Filtration Rate Calc 94 mL/min (>90) Random Glucose 130 mg/dL (70-105) H Total Calcium 8.5 mg/dL (8.5-10.1) Magnesium Level 2.00 mg/dL (1.80-2.40) Total Creatine Kinase 63 U/L (21-232) Troponin I High Sensitivity 9 ng/L (4-75) B-Type Natriuretic Peptide 24 pg/mL (0-100) Labs Reviewed?: Yes MDM MDM: Differential diagnosis: Uncontrolled hypertension, ACS, dehydration, electrolyte abnormality There are no social concerns with this patient. Prescription drug management Prescriptions will include: None Medical management and examination interpretation discussions were had by me with other qualified healthcare professionals as indicated for the patient's care. ED Course Orders Procedure Category Date Status Time Troponin I High LAB 08/01/24 Complete Sensitivity 00:05 12 Lead Ekg Tracing- EKG 08/01/24 Complete Technical 02:50 Cbc With Differential LAB 08/01/24 Complete 02:50 Basic Metabolic Panel LAB 08/01/24 Complete 02:50 B-Type Natriuretic LAB 08/01/24 Complete Peptide 02:50 Creatine Kinase, Total LAB 08/01/24 Complete 02:50 Magnesium LAB 08/01/24 Complete 02:50 Chest 1vw RAD 08/01/24 Resulted 02:50 Vital Signs Date Time Temp Pulse Resp B/P (MAP) Pulse Ox O2 Delivery O2 Flow Rate FiO2 08/01/24 05:07 98.4 82 18 156/80 98 Room Air* 0 21 08/01/24 02:49 71 19 166/67 96 Room Air* 0 21 08/01/24 00:04 97.2 81 18 179/61 100 Room Air DX & DISP Disposition: Discharge Departure Impression: Primary Impression: Elevated blood pressure reading Condition: Stable Additional Instructions: Your blood work today is unremarkable. Your chest x-ray does not show any evidence of pneumonia. Your cardiac enzymes are negative. You need to follow up with your primary care doctor for possible medication adjustment for your high blood pressure. Referrals: CHUCK NESBITT MD (PCP) I have reviewed the case, and I agree with, Diagnosis and Plan I PERFORMED THE SUBSTANTIVE PORTION OF THE VISIT. I HAVE REVIEWED AND PERSONALLY MADE AND APPROVE THE MANAGEMENT PLAN THAT IS DOCUMENTED IN THE NOTE BY MYSELF OR THE REYNALDO. I ACKNOWLEDGE FOR RESPONSIBILITY FOR THE PATIENT'S MANAGEMENT PLAN. ARASH RODAS Aug 01, 2024 04:48
[2024-08-01 05:07] VITALS: BP 156/80; PULSE 82; RESP 18; TEMP 98.5; O2SAT 98
--- NOTE | 2024-08-01 06:26 | EKG ---
[facility] Test Date: 2024-08-01 Test Time: 03:14:42 Pat Name: SHAWANDA GARCIA Department: ED Room: Gender: M Citrix Consultant: [id number] : 1955 Requested By: ARASH RODAS Order Number: [id number] Reading MD: Shawn Quinteros Measurements Intervals [place] Rate: 72 P: 21 NE: 200 QRS: -23 QRSD: 99 T: 22 QT: 388 QTc: 424 Interpretive Statements Sinus rhythm Compared to ECG 07/23/2024 06:37:16 No significant changes Electronically Signed On 08-02-2024 23:21:10 CDT by Shawn Quinteros Please click the below link to view image of tracing.
--- NOTE | 2024-08-01 09:24 | HMCIMG ---
Exam Type: CHEST 1VW Clinical Information: cp Comparison: None Findings: The lungs are clear of infiltrates. The heart is normal in size. The bony and soft tissue structures of the chest are unremarkable. Impression: Clear lungs.
== END 2024-08-01 05:09 | disposition home or self-care (01) ==
LOC: EDH 00:02
DX: I10 Essential (primary) hypertension (principal); E11.9 Type 2 diabetes mellitus without complications; E78.00 Pure hypercholesterolemia, unspecified; I25.10 Atherosclerotic heart disease of native coronary artery without angina pectoris; Z79.02 Long term (current) use of antithrombotics/antiplatelets; Z79.4 Long term (current) use of insulin; Z79.82 Long term (current) use of aspirin; Z79.899 Other long term (current) drug therapy; Z89.512 Acquired absence of left leg below knee
CPT/HCPCS: 36415; 71045; 80048; 82550; 83735; 83880; 84484; 85025; 93005; 99285

== ENCOUNTER 2024-09-15 12:22 | Emergency (ER) | payer OTHER, MEDICARE ==
[~2024-09-15] VITALS: Ht 160 cm; Wt 77.1 kg
--- NOTE | 2024-09-15 12:41 | EKG ---
[facility] Test Date: 2024-09-15 Test Time: 12:38:48 Pat Name: SHAWANDA GARCIA Department: ED Room: Gender: M Dairy Consultant: [id number] : 1955 Requested By: AMADEO VIEIRA Order Number: [id number] Reading MD: Dm Khan Measurements Intervals [place] Rate: 60 P: 27 SD: 172 QRS: 4 QRSD: 100 T: 42 QT: 405 QTc: 404 Interpretive Statements Sinus rhythm Low voltage, precordial leads Compared to ECG 08/01/2024 03:14:42 Low QRS voltage now present RSR' IN V1 OR V2, PROBABLY NORMAL VARIANT Electronically Signed On 09-15-2024 14:53:51 CDT by Dm Khan Please click the below link to view image of tracing.
--- NOTE | 2024-09-15 12:45 | ERN ---
General Chief Complaint: Abdominal Pain Stated Complaint: ABDOMINAL PAIN AND LOW BP Time Seen by MD: 12:27 Source: patient History of Present Illness Initial Comments 68-year-old male coming in to be evaluated for epigastric pain. Patient states that the pain has been ongoing since a couple of days and states that the pain usually presents after eating breakfast. He also states that he has been on antibiotics for three weeks 1st time for a urinary tract infection and 2nd time for strep pharyngitis. He states that the symptoms are improving but when it was present in the morning it was causing him extreme nauseousness. Allergies: Coded Allergies: No Known Allergies (Unverified Allergy, Unknown, 03/03/23) Home Meds Reported Medications Amlodipine Besylate (Amlodipine Besylate) 10 Mg Tablet, 10 MG PO DAILY for 30 Days, #30 TAB 0 Refills 01/15/24 Clopidogrel Bisulfate (Clopidogrel) 75 Mg Tablet, 75 MG PO DAILY, TAB 01/15/24 Potassium Chloride (Potassium Chloride) 20 Meq Tablet.er, 20 MEQ PO DAILY, TAB 01/15/24 Midodrine HCl (Midodrine HCl) 10 Mg Tablet, 10 MG PO DAILY, TAB 24 Zinc Amino Acid Chelate (Zinc) 50 Mg Tablet, 50 MG PO DAILY, TAB 24 Cholecalciferol (Vitamin D3) (Vitamin D3) 25 Mcg (1000 Unit) Tablet, 25 MCG PO DAILY, TAB 08/25/23 Acetaminophen with Codeine (Acetaminophen-Cod #3 Tablet) 300 Mg-30 Mg Tablet, 1 EACH PO Q6HPRN PRN for PAIN, TAB 08/25/23 Multivitamin (Multivitamin) 1 Each Tablet, 1 EACH PO DAILY, TAB 08/25/23 Metoprolol Tartrate (Metoprolol Tartrate) 25 Mg Tablet, 25 MG PO BID, TAB 24 Furosemide (Lasix 20Mg Tab) 20 Mg Tablet, 20 MG PO BID, TAB 24 Insulin Glargine,Hum.rec.anlog (Lantus) 100 Unit/Ml Inj, 10 UNITS SQ DAILY, ML 08/25/23 Hydroxyzine HCl (Hydroxyzine HCl) 25 Mg Tablet, 25 MG PO Q6HPRN PRN for ITCHING, TAB 08/25/23 Insulin Regular, Human (Novolin R) 100 Unit/Ml Vial, 0 SQ AD, VIAL 08/25/23 Folic Acid (Folvite) 1 Mg Tab, 1 MG PO DAILY, TAB 08/25/23 Famotidine (Famotidine) 20 Mg Tablet, 20 MG PO DAILY, TAB 08/25/23 Cyanocobalamin (Vitamin B-12) (Vitamin B-12) 1,000 Mcg Tablet, 1000 MCG PO DAILY, TAB 08/25/23 Aspirin (ASPIRIN 81 MG ECTAB) 81 Mg Ectab, 81 MG PO DAILY, TAB.EC 08/25/23 Past Medical History Past Medical History: CAD, Diabetes-Type II, High Cholesterol, Hypertension Medical History Other: FALLS, SEPSIS, ANGINA Past Surgical History: Other Surgical History Other: LEFT BKA Family History Family History: Negative Social History Social History: Negative, Lives in Prison ROS Dictation CONSTITUTIONAL: No chills, no fever, no weakness, no diaphoresis, no malaise. HEAD/FACE: No signs of trauma. EENT: No eye pain, no blurred vision, no tearing, no double vision, no ear pain, no ear discharge, no nose pain, no nasal congestion, no throat pain, no throat swelling, no mouth pain. RESPIRATORY: No cough, no orthopnea, no SOB, no stridor, no wheezing. CARDIOVASCULAR: No chest pain, no edema, no palpitations, no syncope. GASTROINTESTINAL/ABDOMINAL: abdominal pain, no constipation, no diarrhea, nausea, no vomiting. GENITOURINARY: No abnormal discharge, no dysuria, no frequent urination, no hematuria. No complaints of pain in the genitals. MUSCULOSKELETAL: No back pain, no gout, no joint pain, no joint swelling, no muscle pain, no muscle stiffness, no neck pain. INTEGUMENTARY: No change in color, no change in hair/nails, no dryness, no lesion, no lumps, no rash. NEUROLOGICAL/PSYCH: No anxiety, not depressed, no emotional problem, no headache, no numbness, no pre-existing deficit, no history of seizures, no tremors, no weakness. HEMATOLOGIC/LYMPHATIC: Not anemic, no history of blood clots, no apparent b leeding, no bruising, glands not swollen. All Systems Negative, Except as Noted. Physical Exam Physical Exam Dictation VITAL SIGNS: Reviewed. GENERAL APPEARANCE: Alert, oriented x3, no acute distress, obese. HEAD AND FACE: Non-traumatic. EYES: PERRL, pink conjunctivas, eyelid no trauma, anterior chamber clear. EARS: Pinnas intact and no signs of trauma or erythema. Ear canals clear and no discharge. TMs no erythema. NOSE: No discharge, no bleeding. OROPHARYNX: Mouth normal, teeth no caries, tongue pink. Pharynx clear, no erythema. Tonsils no exudates, no abscesses noted. Mucous membrane moist. NECK: Supple, non-tender, no thyromegaly, no masses, no JVD, no bruits. BREAST: Deferred. CHEST: No tenderness, no crepitus, no paradoxical movement, no retractions. LUNGS: Clear, well-ventilated, symmetric, no rales, no wheezing, no rhonchi, no stridor, good breath sounds bilaterally. HEART: Regular rate, regular rhythm, no murmur, no gallops. VASCULAR: No peripheral edema. ABDOMEN: Soft, positive bowel sounds, nondistended, no guarding, nontender, no rebound, no masses no hepatomegaly, no splenomegaly, no Almazan's sign, no hernias. RECTAL: Deferred. GENITAL: Deferred. NEUROLOGICAL: Normal speech, gross motor function intact, gross sensory function intact. MUSCULOSKELETAL: Neck nontender, full range of motion, back nontender, full ra nge of motion. EXTREMITIES: Nontender, full range of motion. SKIN: Color pink, dry, no turgor, no rash, no lacerations, no abrasions, no contusions. LYMPHATICS: Deferred. Results Laboratory and Microbiology Lab and Micro Result Laboratory Tests Test 09/15/24 13:30 09/15/24 13:45 Urine Color YELLOW (YELLOW) Urine Appearance CLOUDY (CLEAR) H Urine pH 6.0 (5.0-8.0) Urine Specific [place] 1.020 (1.001-1.031) Urine Protein 300 mg/dL (NEGATIVE) H Urine Glucose (UA) NEGATIVE mg/dL (NEGATIVE) Urine Ketones NEGATIVE mg/dL (NEGATIVE) Urine Occult Blood SMALL (NEGATIVE) H Urine Nitrate 2+ (NEGATIVE) H Urine Bilirubin NEGATIVE mg/dL (NEGATIVE) Urine Urobilinogen 2.0 mg/dL (0.2-1.0) H Urine Leukocyte Esterase 500 Katey/uL (NEGATIVE) H Urine RBC 6-10 /HPF (0-1) H Urine WBC 26-50 /HPF (0-1) H Urine WBC Clumps (Auto) 2-5 /HPF (0-1) H Urine Squamous Epithelial Cells Rare /HPF (0-2) Urine Bacteria Moderate /HPF (None Seen) H Urine Hyaline Casts 11-25 /LPF (0-1 /LPF) H White Blood Count 8.8 K/uL (4.8-10.8) Red Blood Count 4.60 MIL/uL (4.50-6.20) Hemoglobin 12.2 g/dL (14.0-18.0) L Hematocrit 38.4 % (42-54) L Mean Corpuscular Volume 83.5 fL (79-99) Mean Corpuscular Hemoglobin 26.5 pg (27.0-33.0) L Mean Corpuscular Hemoglobin Concent 31.8 g/dL (32.0-36.0) L Red Cell Distribution Width 14.1 % (11.0-15.5) Platelet Count 224 K/uL (130-400) Mean Platelet Volume 9.4 fL (7.5-10.5) Immature Granulocyte % (Auto) 0.3 % (0-1) Neutrophils (%) (Auto) 61.7 % (40.0-77.0) Lymphocytes (%) (Auto) 25.3 % (21.0-51.0) Monocytes (%) (Auto) 8.5 % (3.0-13.0) Eosinophils (%) (Auto) 3.5 % (0.0-8.0) Basophils (%) (Auto) 0.7 % (0.0-5.0) Neutrophils # (Auto) 5.4 K/uL (1.8-7.7) Lymphocytes # (Auto) 2.2 K/uL (1.0-4.8) Monocytes # (Auto) 0.8 K/uL (0.1-1.0) Eosinophils # (Auto) 0.31 K/uL (0.00-0.70) Basophils # (Auto) 0.06 K/uL (0.00-0.20) Absolute Immature Granulocyte (auto 0.03 K/uL (0-1) Nucleated Red Blood Cells 0.0 % (0.0-0.19) Sodium Level 137 mmol/L (136-145) Potassium Level 4.6 mmol/L (3.5-5.1) Chloride Level 102 mmol/L (101-111) Carbon Dioxide Level 30 mmol/L (21-32) Blood Urea Nitrogen 26 mg/dL (7-18) H Creatinine 0.9 mg/dL (0.5-1.3) Glomerular Filtration Rate Calc 94 mL/min (>90) Random Glucose 87 mg/dL (70-105) Total Calcium 8.5 mg/dL (8.5-10.1) Total Bilirubin 0.2 mg/dL (0.2-1.0) Aspartate Amino Transf (AST/SGOT) 27 U/L (10-37) Alanine Aminotransferase (ALT/SGPT) 42 U/L (12-78) Alkaline Phosphatase 71 U/L (50-136) Total Creatine Kinase 63 U/L (21-232) Troponin I High Sensitivity 9 ng/L (4-75) Total Protein 6.4 g/dL (6.0-8.3) Albumin 3.5 g/dL (3.5-5.0) Lipase 46 U/L (16-77) Labs Reviewed?: Yes EKG/XRAY/US/CT/MRI EKG Comment 09/15/2024 time 12:38 p.m. Ventricular rate [address] wave elevation or depression MDM MDM: Differential diagnosis: GERD, UTI, GASTRITIS Rationale: Tests considered and ordered secondary to shared decision making include: Previous outside records reviewed: Old ER visits. Risk of complication and/or morbidity or mortality of patient management: None Medications-Per medication reconciliation PATIENT IS A 63-YEAR-OLD MALE COMING IN TO BE EVALUATED FOR EPIGASTRIC PAIN. PATIENT STATES THAT EVERY TIME HE TAKES MEDICATION HIS STOMACH HURTS. PATIENT WAS EVALUATED HE WAS FOUND TO HAVE A URINARY TRACT INFECTION GIVEN IV FLUIDS WELL IV PROTONIX AND GI COCKTAIL STATES HE FEELS MUCH BETTER WILL BE DISCHARGED IN STABLE CONDITION. ED Course Orders Procedure Category Date Status Time Cbc With Differential LAB 09/15/24 Complete 12:30 Comprehensive LAB 09/15/24 Complete Metabolic Panel 12:30 Troponin I High LAB 09/15/24 Complete Sensitivity 12:30 Urinalysis Profile LAB 09/15/24 Complete 12:30 12 Lead Ekg Tracing- EKG 09/15/24 Complete Technical 12:30 Lactated Ringers PHA 09/15/24 Complete 1000ml (Lactated 12:30 Ondansetron 4mg Inj PHA 09/15/24 Complete (Zofran 4mg Inj) 12:30 Pantoprazole 40mg Inj PHA 09/15/24 Complete (Protonix 40mg Inj 12:30 Creatine Kinase, Total LAB 09/15/24 Complete 12:30 Chest 1vw RAD 09/15/24 Resulted 12:30 Lipase LAB 09/15/24 Complete 12:30 Lidocaine Hcl 2% PHA 09/15/24 Complete Viscous (Lidocaine Hcl 14:00 Mag/Alum/Simeth 30ml PHA 09/15/24 Complete (Maalox Plus 30ml) 14:00 Culture Urine BRENNAN 09/15/24 In Process 14:09 Ceftriaxone 1g Vial PHA 09/15/24 Complete (Rocephine 1g Inj) 14:30 Current Medications Medications (Trade) Dose Ordered Sig/Esther Route PRN Reason Start Time Stop Time Status Last Admin Dose Admin Al Hydroxide/Mg Hydroxide (MAALox PLUS 30ML) 30 ml ONCE ONCE PO 09/15/24 14:00 09/15/24 14:01 DC 09/15/24 14:28 Ceftriaxone Sodium (ROCEphine 1G INJ) 1 gm ONCE ONCE IVPB 09/15/24 14:30 09/15/24 14:31 DC 09/15/24 14:27 Lactated Ringer's 1,000 ml @ 0 mls/hr ONCE ONCE IV 09/15/24 12:30 09/15/24 12:32 DC 09/15/24 14:28 Lidocaine HCl (Lidocaine HCl 2% Viscous) 10 ml ONCE ONCE PO 09/15/24 14:00 09/15/24 14:01 DC 09/15/24 14:28 Ondansetron HCl (zoFRAN 4MG INJ) 4 mg ONCE ONCE IVP 09/15/24 12:30 09/15/24 12:32 DC 09/15/24 14:28 Pantoprazole Sodium (PROTonix 40MG INJ) 40 mg ONCE ONCE IVP 09/15/24 12:30 09/15/24 12:32 DC 09/15/24 14:28 Vital Signs Date Time Temp Pulse Resp B/P (MAP) Pulse Ox O2 Delivery O2 Flow Rate FiO2 09/15/24 13:49 98.2 63 16 177/63 99 Room Air* 0 21 09/15/24 12:23 98.2 59 20 139/59 99 Room Air DX & DISP Disposition: Discharge Departure Impression: Primary Impression: UTI (urinary tract infection) Additional Impression: Gastritis Condition: Stable Scripts Cephalexin Monohydrate (Keflex) 500 Mg Cap 1 CAP PO BID for 10 Days, #20 CAP 0 Refills Prov: AMADEO VIEIRA MD 09/15/24 Additional Instructions: FOLLOW-UP WITH PRIMARY CARE PROVIDER IN 1 TO 2 DAYS. TAKE MEDICATIONS DIRECTED HERE IN THE EMERGENCY ROOM. OKAY TO CONTINUE HOME MEDICATIONS UNLESS OTHERWISE DISCUSSED DURING YOUR VISIT IN THE EMERGENCY ROOM TODAY. RETURN TO YOUR NEAREST EMERGENCY ROOM IF SYMPTOMS WORSEN OR IF THERE IS NO IMPROVEMENT. CALL 911 IF YOU NEED IMMEDIATE ASSISTANCE. TAKE TYLENOL [id number] NEEDED AND IF NO CONTRAINDICATIONS ARE PRESENT. INCREASE ORAL HYDRATION. A WOUND CULTURE OR URINE CULTURE WAS ORDERED HERE IN THE EMERGENCY ROOM DEPARTMENT PLEASE FOLLOW-UP WITH PRIMARY CARE PROVIDER AND ADVISE THEM TO GET REPEAT PORTS FROM OUR FACILITY. IF YOU HAD ANY CATHI WRAP/SPLINTS THAT WERE APPLIED HERE, PLEASE DO NOT REMOVE THEM UNTIL YOU SEE YOUR PRIMARY CARE OR SPECIALTY. REFERRALS: Referrals: CHUCK NESBITT MD (PCP) Time of Disposition: 14:58 AMADEO VIEIRA MD Sep 15, 2024 12:45
--- NOTE | 2024-09-15 13:49 | NUR ---
BLOOD AND URINE COLLECTED WHEN PT BROUGHT INSIDE ER AT THIS TIME
[2024-09-15 13:51] LABS: BASOPHILS # (AUTO) 0.06 K/uL (0.00-0.20); BASOPHILS % (AUTO) 0.7 % (0.0-5.0); EOSINOPHILS # (AUTO) 0.31 K/uL (0.00-0.70); EOSINOPHILS % (AUTO) 3.5 % (0.0-8.0); HEMATOCRIT 38.4 % (42-54); IMMATURE GRANULOCYTE ABSOLUTE 0.03 K/uL (0-1); LYMPHOCYTES # (AUTO) 2.2 K/uL (1.0-4.8); LYMPHOCYTES % (AUTO) 25.3 % (21.0-51.0); MEAN CORPUSCULAR HEMOGLOBIN 26.5 pg (27.0-33.0); MEAN CORPUSCULAR HGB CONC 31.8 g/dL (32.0-36.0); MEAN CORPUSCULAR VOLUME 83.5 fL (79-99); MONOCYTES # (AUTO) 0.8 K/uL (0.1-1.0); MONOCYTES % (AUTO) 8.5 % (3.0-13.0); NEUTROPHILS # (AUTO) 5.4 K/uL (1.8-7.7); NEUTROPHILS % (AUTO) 61.7 % (40.0-77.0); PLATELET COUNT (AUTO) 224 K/uL (130-400); RED CELL DISTRIBUTION WIDTH 14.1 % (11.0-15.5); WHITE BLOOD COUNT (AUTO) 8.8 K/uL (4.8-10.8)
[2024-09-15 14:02] LABS: APPEARANCE,URINE CLOUDY (CLEAR); BILIRUBIN,URINE NEGATIVE (NEGATIVE); COLOR,URINE YELLOW (YELLOW); GLUCOSE, URINE (UA) NEGATIVE (NEGATIVE); KETONES,URINE NEGATIVE (NEGATIVE); LEUKOCYTE ESTERASE ,URINE 500 Leu/uL (NEGATIVE); NITRATE,URINE 2+ (NEGATIVE); OCCULT BLOOD,URINE SMALL (NEGATIVE); PROTEIN,URINE 300 mg/dL (NEGATIVE)
[2024-09-15 14:04] LABS: ADD UA MICROSCOPIC YES
[2024-09-15 14:08] LABS: CREATININE 0.9 mg/dL (0.5-1.3); POTASSIUM 4.6 mmol/L (3.5-5.1)
[2024-09-15 14:12] LABS: ALBUMIN 3.5 g/dL (3.5-5.0); BILIRUBIN,TOTAL 0.2 mg/dL (0.2-1.0); TOTAL PROTEIN, SERUM 6.4 g/dL (6.0-8.3)
[2024-09-15 14:18] LABS: BACTERIA,URINE Moderate /HPF (None Seen); MUCUS,URINE Rare LPF (None Seen); SQUAMOUS EPITHELIAL CELL,UR Rare /HPF (0-2)
[2024-09-15 14:20] LABS: WBC,URINE 26-50 /HPF (0-1)
[2024-09-15] MEDS: cefTRIAXone 1G VIAL IVPB ONE (14:27)
[2024-09-15] MEDS: PANTOPrazole 40 MG/VIAL IVP ONE (14:28)
[2024-09-15] MEDS: LIDOCAINE HCL 2% VISCOUS 15 ML UDCUP PO ONE (14:28)
[2024-09-15] MEDS: LACTATED RINGERS 1000ML 1,000 ML IV ONE (14:28)
[2024-09-15] MEDS: MAG/ALUM/SIMETH 30 ML UDCUP PO ONE (14:28)
[2024-09-15] MEDS: ondanSETRON 4MG INJ IVP ONE (14:28)
--- NOTE | 2024-09-15 14:42 | HMCIMG ---
CHEST 1VW HISTORY: Chest pain COMPARISON: 08/01/2024 FINDINGS: A frontal projection of the chest was obtained. Prominent interstitial markings are seen with possible superimposed infiltrates. The heart is borderline enlarged. Degenerative changes of No evidence of aortic calcification is seen. IMPRESSION: 1. Prominent interstitial markings are seen with possible superimposed infiltrates.
[2024-09-15 14:56] VITALS: BP 175/49; PULSE 72; RESP 16; TEMP 98.3; O2SAT 99
[2024-09-15] MEDS ORDERED: CEPH500B PO (14:59)
[2024-09-16] MEDS ORDERED: SULF1TAB42 PO (11:07)
[2024-09-16] MEDS ORDERED: PRED20TA3 PO (11:07)
== END 2024-09-15 15:14 | disposition home or self-care (01) ==
LOC: EDH 12:22
DX: N39.0 Urinary tract infection, site not specified (principal); K29.70 Gastritis, unspecified, without bleeding; E11.9 Type 2 diabetes mellitus without complications; E78.00 Pure hypercholesterolemia, unspecified; I10 Essential (primary) hypertension; I25.10 Atherosclerotic heart disease of native coronary artery without angina pectoris; Z79.02 Long term (current) use of antithrombotics/antiplatelets; Z79.4 Long term (current) use of insulin; Z79.82 Long term (current) use of aspirin; Z79.899 Other long term (current) drug therapy; Z89.512 Acquired absence of left leg below knee
CPT/HCPCS: 99285; 96374; 96375; 71045; 82550; 84484; 80053; 83690; 85025; 87086 ×2; 87186; 81001; 36415; 93005; J7120; J0696; J2405; J2470

== ENCOUNTER 2024-09-16 10:33 | Emergency (ER) | payer OTHER, MEDICARE ==
[~2024-09-16] VITALS: Ht 160 cm; Wt 77.1 kg
[~2024-09-16 10:33] MED LIST changes: +CEPH500B PO
[2024-09-16 10:39] VITALS: BP 105/54; PULSE 65; RESP 20; TEMP 98.6; O2SAT 96
[2024-09-16] MEDS ORDERED: SULF1TAB42 PO (11:07)
[2024-09-16] MEDS ORDERED: PRED20TA3 PO (11:07)
--- NOTE | 2024-09-16 11:09 | ERN ---
General Chief Complaint: Allergic Reaction Stated Complaint: RASH Time Seen by MD: 10:34 History of Present Illness Initial Comments 68-year-old male who presents for allergic reaction. He was recently diagnosed with a urinary tract infection at this facility. Yesterday you received a dose of Rocephin. When he went home he developed a rash. He took some Benadryl at briefly resolved, this morning he took Keflex and it returned. No respiratory distress or other symptoms. He has a maculopapular type rash over the trunk. Allergies: Coded Allergies: No Known Allergies (Unverified Allergy, Unknown, 03/03/23) Home Meds Active Scripts Cephalexin Monohydrate (Keflex) 500 Mg Cap, 1 CAP PO BID for 10 Days, #20 CAP 0 Refills Prov:AMADEO VIEIRA MD 09/15/24 Reported Medications Amlodipine Besylate (Amlodipine Besylate) 10 Mg Tablet, 10 MG PO DAILY for 30 Days, #30 TAB 0 Refills 01/15/24 Clopidogrel Bisulfate (Clopidogrel) 75 Mg Tablet, 75 MG PO DAILY, TAB 01/15/24 Potassium Chloride (Potassium Chloride) 20 Meq Tablet.er, 20 MEQ PO DAILY, TAB 01/15/24 Midodrine HCl (Midodrine HCl) 10 Mg Tablet, 10 MG PO DAILY, TAB 24 Zinc Amino Acid Chelate (Zinc) 50 Mg Tablet, 50 MG PO DAILY, TAB 08/25/23 Cholecalciferol (Vitamin D3) (Vitamin D3) 25 Mcg (1000 Unit) Tablet, 25 MCG PO DAILY, TAB 08/25/23 Acetaminophen with Codeine (Acetaminophen-Cod #3 Tablet) 300 Mg-30 Mg Tablet, 1 EACH PO Q6HPRN PRN for PAIN, TAB 08/25/23 Multivitamin (Multivitamin) 1 Each Tablet, 1 EACH PO DAILY, TAB 24 Metoprolol Tartrate (Metoprolol Tartrate) 25 Mg Tablet, 25 MG PO BID, TAB 24 Furosemide (Lasix 20Mg Tab) 20 Mg Tablet, 20 MG PO BID, TAB 24 Insulin Glargine,Hum.rec.anlog (Lantus) 100 Unit/Ml Inj, 10 UNITS SQ DAILY, ML 08/25/23 Hydroxyzine HCl (Hydroxyzine HCl) 25 Mg Tablet, 25 MG PO Q6HPRN PRN for ITCHING, TAB 08/25/23 Insulin Regular, Human (Novolin R) 100 Unit/Ml Vial, 0 SQ AD, VIAL 08/25/23 Folic Acid (Folvite) 1 Mg Tab, 1 MG PO DAILY, TAB 08/25/23 Famotidine (Famotidine) 20 Mg Tablet, 20 MG PO DAILY, TAB 08/25/23 Cyanocobalamin (Vitamin B-12) (Vitamin B-12) 1,000 Mcg Tablet, 1000 MCG PO DAILY, TAB 08/25/23 Aspirin (ASPIRIN 81 MG ECTAB) 81 Mg Ectab, 81 MG PO DAILY, TAB.EC 08/25/23 Past Medical History Past Medical History: CAD, Diabetes-Type II, High Cholesterol, Hypertension Medical History Other: FALLS, SEPSIS, ANGINA Past Surgical History: Other Surgical History Other: LEFT BKA Family History Family History: Negative Social History Social History: Negative, Lives in Long Term ROS Dictation CONSTITUTIONAL: No chills, no fever, no weakness, no diaphoresis, no malaise. HEAD/FACE: No signs of trauma. EENT: No eye pain, no blurred vision, no tearing, no double vision, no ear pain, no ear discharge, no nose pain, no nasal congestion, no throat pain, no throat swelling, no mouth pain. RESPIRATORY: No cough, no orthopnea, no SOB, no stridor, no wheezing. CARDIOVASCULAR: No chest pain, no edema, no palpitations, no syncope. GASTROINTESTINAL/ABDOMINAL: No abdominal pain, no constipation, no diarrhea, no nausea, no vomiting. GENITOURINARY: No abnormal discharge, no dysuria, no frequent urination, no hematuria. No complaints of pain in the genitals. MUSCULOSKELETAL: No back pain, no gout, no joint pain, no joint swelling, no muscle pain, no muscle stiffness, no neck pain. INTEGUMENTARY: Rash itchiness NEUROLOGICAL/PSYCH: No anxiety, not depressed, no emotional problem, no headache, no numbness, no pre-existing deficit, no history of seizures, no tremors, no weakness. HEMATOLOGIC/LYMPHATIC: Not anemic, no history of blood clots, no apparent bleeding, no bruising, glands not swollen. All Systems Negative, Except as Noted. Physical Exam Physical Exam Dictation VITAL SIGNS: Reviewed. GENERAL APPEARANCE: Alert, oriented x3, no acute distress HEAD AND FACE: Non-traumatic. EYES: PERRL, pink conjunctivas, eyelid no trauma, anterior chamber clear. EARS: Pinnas intact and no signs of trauma or erythema. Ear canals clear and no discharge. TMs no erythema. NOSE: No discharge, no bleeding. OROPHARYNX: Mouth normal, teeth no caries, tongue pink. Pharynx clear, no erythema. Tonsils no exudates, no abscesses noted. Mucous membrane moist. NECK: Supple, non-tender, no thyromegaly, no masses, no JVD, no bruits. BREAST: Deferred. CHEST: No tenderness, no crepitus, no paradoxical movement, no retractions. LUNGS: Clear, well-ventilated, symmetric, no rales, no wheezing, no rhonchi, no stridor, good breath sounds bilaterally. HEART: Regular rate, regular rhythm, no murmur, no gallops. VASCULAR: No peripheral edema. ABDOMEN: Soft, positive bowel sounds, nondistended, no guarding, nontender, no rebound, no masses no hepatomegaly, no splenomegaly, no Almazan's sign, no hernias. RECTAL: Deferred. GENITAL: Deferred. NEUROLOGICAL: Normal speech, gross motor function intact, gross sensory function intact. MUSCULOSKELETAL: Neck nontender, full range of motion, back nontender, full range of motion. EXTREMITIES: Nontender, full range of motion. SKIN: Maculopapular rash LYMPHATICS: Deferred. [facility] CC: Maculopapular rash/hives Historian: Patient was syncopal orbits: Diabetes, frequent UTIs Limitations by social determinants of health: None Differential diagnosis: Anaphylaxis, hives, allergic reaction, other. Clinical exam shows hives over the trunk otherwise unremarkable. Lung sounds are clear, no airway compromise No labs or imaging indicated. Symptoms most consistent with a allergic goran ction. I suspect it is due to the Rocephin that the patient received yesterday. Patient received oral prednisone here in the ER We will discharge with a course of oral prednisone. Recommend antihistamines at home. Patient was discharged with Keflex, this may also be the culprit and is in the same class of the Rocephin. We will switch to Bactrim. Patient was agreeable. ED Course Orders Procedure Category Date Status Time Prednisone 20mg Tab PHA 09/16/24 Verified (Deltasone/Orasone 2 11:30 Vital Signs Date Time Temp Pulse Resp B/P (MAP) Pulse Ox O2 Delivery O2 Flow Rate FiO2 09/16/24 10:39 98.6 65 20 105/54 96 Room Air 0 DX & DISP Disposition: Discharge Departure Impression: Primary Impression: UTI (urinary tract infection) Additional Impression: Allergic reaction Condition: Stable Scripts Prednisone (Prednisone) 20 Mg Tablet 1 TAB PO BID for 5 Days, #10 TAB 0 Refills Prov: NORMA ORTEGA DO 09/16/24 Sulfamethoxazole/Trimethoprim (Bactrim Ds Tablet) 800 Mg-160 Mg Tablet 1 TAB PO BID for 10 Days, #20 TAB 0 Refills Prov: NORMA ORTEGA DO 09/16/24 Additional Instructions: Your symptoms are consistent with hives, which is often an allergic reaction. I suspect it may be due to the ceftriaxone or cephalexin that you were taking. You received a dose of anti-inflammatory steroids (prednisone) here in the ER. I have given you a prescription for prednisone. You can take this twice per day for the next few days to reduce the itching and hives. You can stop taking this medications once her symptoms improve. You can use [id number] antihistamines such as Benadryl or Zyrtec. You can continue with the calamine lotion for discomfort. I recommend that you stop taking the cephalexin. I have prescribed Bactrim, which is an antibiotic use to treat UTIs and a different class of medications. Return to the emergency department if you have any respiratory distress, or vomiting, airway swelling, or any other concerning symptom. Otherwise, you can follow up with the primary doctor. Referrals: CHUCK NESBITT MD (PCP) NORMA ORTEGA DO Sep 16, 2024 11:09
[2024-09-16] MEDS: predniSONE 20 MG TABLET PO ONE (11:20)
[2024-09-16] MEDS: predniSONE 20 MG TABLET ONE (11:20)
== END 2024-09-16 11:21 | disposition home or self-care (01) ==
LOC: EDH 10:33
DX: N39.0 Urinary tract infection, site not specified (principal); T78.40XA Allergy, unspecified, initial encounter; I25.10 Atherosclerotic heart disease of native coronary artery without angina pectoris; E78.00 Pure hypercholesterolemia, unspecified; E11.9 Type 2 diabetes mellitus without complications; I10 Essential (primary) hypertension; Z79.02 Long term (current) use of antithrombotics/antiplatelets; Z79.4 Long term (current) use of insulin; Z79.82 Long term (current) use of aspirin; Z79.899 Other long term (current) drug therapy; Z89.512 Acquired absence of left leg below knee; X58.XXXA Exposure to other specified factors, initial encounter
CPT/HCPCS: 99283

== ENCOUNTER 2024-09-24 14:09 | Emergency (ER) | payer OTHER, MEDICARE ==
[~2024-09-24] VITALS: Ht 160 cm; Wt 77.1 kg
[~2024-09-24 14:09] MED LIST changes: +PRED20TA3 PO; +SULF1TAB42 PO
--- NOTE | 2024-09-24 14:40 | ERN ---
General Chief Complaint: Abdominal Pain Stated Complaint: UTI, SOB Time Seen by MD: 14:10 Source: patient History of Present Illness Initial Comments IN HIS IS A 68-YEAR-OLD MALE COMING IN TO BE EVALUATED FOR ABDOMINAL PAIN. PATIENT STATES THAT HE WAS EPIGASTRIC PAIN HE WAS BEGAN TODAY. HE ALSO STATES THAT HE DOES HAS A HISTORY OF DIABETES IN HIS NOT BEEN USING HIS INSULIN DUE TO WELL CONTROLLED DIABETES. Allergies: Coded Allergies: No Known Allergies (Unverified Allergy, Unknown, 03/03/23) ceftriaxone (Unverified Allergy, Unknown, 09/24/24) Home Meds Active Scripts Prednisone (Prednisone) 20 Mg Tablet, 1 TAB PO BID for 5 Days, #10 TAB 0 Refills Prov:NORMA ORTEGA DO 09/16/24 Sulfamethoxazole/Trimethoprim (Bactrim Ds Tablet) 800 Mg-160 Mg Tablet, 1 TAB PO BID for 10 Days, #20 TAB 0 Refills Prov:NORMA ORTEGA DO 09/16/24 Cephalexin Monohydrate (Keflex) 500 Mg Cap, 1 CAP PO BID for 10 Days, #20 CAP 0 Refills Prov:AMADEO VIEIRA MD 09/15/24 Reported Medications Amlodipine Besylate (Amlodipine Besylate) 10 Mg Tablet, 10 MG PO DAILY for 30 Days, #30 TAB 0 Refills 01/15/24 Clopidogrel Bisulfate (Clopidogrel) 75 Mg Tablet, 75 MG PO DAILY, TAB 01/15/24 Potassium Chloride (Potassium Chloride) 20 Meq Tablet.er, 20 MEQ PO DAILY, TAB 01/15/24 Midodrine HCl (Midodrine HCl) 10 Mg Tablet, 10 MG PO DAILY, TAB 01/15/24 Zinc Amino Acid Chelate (Zinc) 50 Mg Tablet, 50 MG PO DAILY, TAB 08/25/23 Cholecalciferol (Vitamin D3) (Vitamin D3) 25 Mcg (1000 Unit) Tablet, 25 MCG PO DAILY, TAB 08/25/23 Acetaminophen with Codeine (Acetaminophen-Cod #3 Tablet) 300 Mg-30 Mg Tablet, 1 EACH PO Q6HPRN PRN for PAIN, TAB 08/25/23 Multivitamin (Multivitamin) 1 Each Tablet, 1 EACH PO DAILY, TAB 08/25/23 Metoprolol Tartrate (Metoprolol Tartrate) 25 Mg Tablet, 25 MG PO BID, TAB 08/25/23 Furosemide (Lasix 20Mg Tab) 20 Mg Tablet, 20 MG PO BID, TAB 08/25/23 Insulin Glargine,Hum.rec.anlog (Lantus) 100 Unit/Ml Inj, 10 UNITS SQ DAILY, ML 08/25/23 Hydroxyzine HCl (Hydroxyzine HCl) 25 Mg Tablet, 25 MG PO Q6HPRN PRN for ITCHING, TAB 08/25/23 Insulin Regular, Human (Novolin R) 100 Unit/Ml Vial, 0 SQ AD, VIAL 08/25/23 Folic Acid (Folvite) 1 Mg Tab, 1 MG PO DAILY, TAB 08/25/23 Famotidine (Famotidine) 20 Mg Tablet, 20 MG PO DAILY, TAB 08/25/23 Cyanocobalamin (Vitamin B-12) (Vitamin B-12) 1,000 Mcg Tablet, 1000 MCG PO DAILY, TAB 08/25/23 Aspirin (ASPIRIN 81 MG ECTAB) 81 Mg Ectab, 81 MG PO DAILY, TAB.EC 08/25/23 Past Medical History Past Medical History: CAD, Diabetes-Type II, High Cholesterol, Hypertension Medical History Other: FALLS, SEPSIS, ANGINA, BLIND Past Surgical History: Other Surgical History Other: LEFT BKA Family History Family History: Negative Social History Social History: Negative, Lives in [facility] ROS Dictation CONSTITUTIONAL: NO CHILLS, NO FEVER, NO WEAKNESS, NO DIAPHORESIS, NO MALAISE. HEAD/FACE: NO SIGNS OF TRAUMA. EENT: NO EYE PAIN, NO BLURRED VISION, NO TEARING, NO DOUBLE VISION, NO EAR PAIN, NO EAR DISCHARGE, NO NOSE PAIN, NO NASAL CONGESTION, NO THROAT PAIN, NO THROAT SWELLING, NO MOUTH PAIN. RESPIRATORY: NO COUGH, NO ORTHOPNEA, NO SOB, NO STRIDOR, NO WHEEZING. CARDIOVASCULAR: NO CHEST PAIN, NO EDEMA, NO PALPITATIONS, NO SYNCOPE. GASTROINTESTINAL/ABDOMINAL: ABDOMINAL PAIN, NO CONSTIPATION, NO DIARRHEA, NO NAUSEA, NO VOMITING. GENITOURINARY: NO ABNORMAL DISCHARGE, NO DYSURIA, NO FREQUENT URINATION, NO HEMATURIA. NO COMPLAINTS OF PAIN IN THE GENITALS. MUSCULOSKELETAL: NO BACK PAIN, NO GOUT, NO JOINT PAIN, NO JOINT SWELLING, NO MUSCLE PAIN, NO MUSCLE STIFFNESS, NO NECK PAIN. INTEGUMENTARY: NO CHANGE IN COLOR, NO CHANGE IN HAIR/NAILS, NO DRYNESS, NO LESION, NO LUMPS, NO RASH. NEUROLOGICAL/PSYCH: NO ANXIETY, NOT DEPRESSED, NO EMOTIONAL PROBLEM, NO HEADACHE, NO NUMBNESS, NO PRE-EXISTING DEFICIT, NO HISTORY OF SEIZURES, NO TREMORS, NO WEAKNESS. HEMATOLOGIC/LYMPHATIC: NOT ANEMIC, NO HISTORY OF BLOOD CLOTS, NO APPARENT BLEEDING, NO BRUISING, GLANDS NOT SWOLLEN. ALL SYSTEMS NEGATIVE, EXCEPT NOTED. Physical Exam Physical Exam Dictation VITAL SIGNS: REVIEWED. GENERAL APPEARANCE: ALERT, ORIENTED X3, NO ACUTE DISTRESS, OBESE. HEAD AND FACE: NON-TRAUMATIC. EYES: PERRL, PINK CONJUNCTIVAS, EYELID NO TRAUMA, ANTERIOR CHAMBER CLEAR. EARS: PINNAS INTACT AND NO SIGNS OF TRAUMA OR ERYTHEMA. EAR CANALS CLEAR AND NO DISCHARGE. TMS NO ERYTHEMA. NOSE: NO DISCHARGE, NO BLEEDING. OROPHARYNX: MOUTH NORMAL, TEETH NO CARIES, TONGUE PINK. PHARYNX CLEAR, NO ERYTHEMA. TONSILS NO EXUDATES, NO ABSCESSES NOTED. MUCOUS MEMBRANE MOIST. NECK: SUPPLE, NON-TENDER, NO THYROMEGALY, NO MASSES, NO JVD, NO BRUITS. BREAST: DEFERRED. CHEST: NO TENDERNESS, NO CREPITUS, NO PARADOXICAL MOVEMENT, NO RETRACTIONS. LUNGS: CLEAR, WELL-VENTILATED, SYMMETRIC, NO RALES, NO WHEEZING, NO RHONCHI, NO STRIDOR, GOOD BREATH SOUNDS BILATERALLY. HEART: REGULAR RATE, REGULAR RHYTHM, NO MURMUR, NO GALLOPS. VASCULAR: NO PERIPHERAL EDEMA. ABDOMEN: SOFT, POSITIVE BOWEL SOUNDS, NONDISTENDED, NO GUARDING, EPIGASTRIC PAIN REPRODUCIBLE ON PALPATION, NO REBOUND, NO MASSES NO HEPATOMEGALY, NO SPLENOMEGALY, NO HAWTHORNE'S SIGN, NO HERNIAS. RECTAL: DEFERRED. GENITAL: DEFERRED. NEUROLOGICAL: NORMAL SPEECH, GROSS MOTOR FUNCTION INTACT, GROSS SENSORY FUNCTION INTACT. MUSCULOSKELETAL: NECK NONTENDER, FULL RANGE OF MOTION, BACK NONTENDER, FULL RANGE OF MOTION. EXTREMITIES: NONTENDER, FULL RANGE OF MOTION. SKIN: COLOR PINK, DRY, NO TURGOR, NO RASH, NO LACERATIONS, NO ABRASIONS, NO CONTUSIONS. LYMPHATICS: DEFERRED. Results Laboratory and Microbiology Lab and Micro Result Laboratory Tests Test 09/24/24 14:40 09/24/24 16:47 White Blood Count 8.8 K/uL (4.8-10.8) Red Blood Count 4.54 MIL/uL (4.50-6.20) Hemoglobin 12.0 g/dL (14.0-18.0) L Hematocrit 38.1 % (42-54) L Mean Corpuscular Volume 83.9 fL (79-99) Mean Corpuscular Hemoglobin 26.4 pg (27.0-33.0) L Mean Corpuscular Hemoglobin Concent 31.5 g/dL (32.0-36.0) L Red Cell Distribution Width 14.0 % (11.0-15.5) Platelet Count 249 K/uL (130-400) Mean Platelet Volume 9.9 fL (7.5-10.5) Immature Granulocyte % (Auto) 0.3 % (0-1) Neutrophils (%) (Auto) 60.2 % (40.0-77.0) Lymphocytes (%) (Auto) 27.0 % (21.0-51.0) Monocytes (%) (Auto) 7.3 % (3.0-13.0) Eosinophils (%) (Auto) 4.4 % (0.0-8.0) Basophils (%) (Auto) 0.8 % (0.0-5.0) Neutrophils # (Auto) 5.3 K/uL (1.8-7.7) Lymphocytes # (Auto) 2.4 K/uL (1.0-4.8) Monocytes # (Auto) 0.6 K/uL (0.1-1.0) Eosinophils # (Auto) 0.39 K/uL (0.00-0.70) Basophils # (Auto) 0.07 K/uL (0.00-0.20) Absolute Immature Granulocyte (auto 0.03 K/uL (0-1) Nucleated Red Blood Cells 0.0 % (0.0-0.19) Prothrombin Time 11.3 SEC (9.6-11.6) Prothromb Time International Ratio 1.07 (0.85-1.15) Activated Partial Thromboplast Time 25.4 SEC (26.3-35.5) L Sodium Level 134 mmol/L (136-145) L Potassium Level 5.1 mmol/L (3.5-5.1) Chloride Level 101 mmol/L (101-111) Carbon Dioxide Level 27 mmol/L (21-32) Blood Urea Nitrogen 38 mg/dL (7-18) H Creatinine 1.5 mg/dL (0.5-1.3) H Glomerular Filtration Rate Calc 51 mL/min (>90) Random Glucose 123 mg/dL (70-105) H Lactic Acid Level 1.8 mmol/L (0.8-2.5) Total Calcium 8.6 mg/dL (8.5-10.1) Total Creatine Kinase 20 U/L (21-232) #L Troponin I High Sensitivity 9 ng/L (4-75) Procalcitonin < 0.05 ng/mL (0.05-0.5) L Urine Color YELLOW (YELLOW) Urine Appearance CLOUDY (CLEAR) H Urine pH 6.0 (5.0-8.0) Urine Specific [place] 1.015 (1.001-1.031) Urine Protein 100 mg/dL (NEGATIVE) H Urine Glucose (UA) NEGATIVE mg/dL (NEGATIVE) Urine Ketones NEGATIVE mg/dL (NEGATIVE) Urine Occult Blood NEGATIVE (NEGATIVE) Urine Nitrate NEGATIVE (NEGATIVE) Urine Bilirubin NEGATIVE mg/dL (NEGATIVE) Urine Urobilinogen 2.0 mg/dL (0.2-1.0) H Urine Leukocyte Esterase 250 Katey/uL (NEGATIVE) H Labs Reviewed?: Yes MDM MDM: Differential diagnosis: UTI, chronic UTI, ESBL, gastritis, Rationale: Tests considered and ordered secondary to shared decision making include: Previous outside records reviewed: Old ER visits. Risk of complication and/or morbidity or mortality of patient management: None Medications-Per medication reconciliation Need for hospitalization: Patient does not meet criteria for hospitalization. Patient is a 68-year-old gentleman coming in complaining of abdominal discomfort. Family member arrived and states that patient has been having this discomfort for a while and was trace back to urinary tract infection. Per daughter patient has been on different antibiotics and his urinary tract infection in his still present. Patient was pending a visit to Dr. Rea the infectious disease doctor. Spoke to Dr. Rea per their request patient is to be started on Macrobid and follow up in his clinic. ED Course Orders Procedure Category Date Status Time Cbc With Differential LAB 09/24/24 Complete 14:23 Prothrombin Time With LAB 09/24/24 Complete INR 14:23 Partial LAB 09/24/24 Complete Thromboplastin Time 14:23 Blood Cult BRENNAN 09/24/24 In Process 14:23 Urinalysis Profile LAB 09/24/24 In Process 14:23 Culture Urine BRENNAN 09/24/24 Logged 14:23 0.9%Nacl 1000ml (Ns PHA 09/24/24 In Process 1000ml) 14:30 Creatine Kinase, Total LAB 09/24/24 Complete 14:23 Troponin I High LAB 09/24/24 Complete Sensitivity 14:23 Procalcitonin LAB 09/24/24 Complete 14:23 Lactic Acid LAB 09/24/24 Complete 14:23 Basic Metabolic Panel LAB 09/24/24 Complete 14:23 12 Lead Ekg Tracing- EKG 09/24/24 Complete Technical 14:23 Current Medications Medications (Trade) Dose Ordered Sig/Esther Route PRN Reason Start Time Stop Time Status Last Admin Dose Admin Sodium Chloride 2,313 ml @ 771 mls/hr ONCE ONCE IV 09/24/24 14:30 09/24/24 17:29 09/24/24 15:05 Vital Signs Date Time Temp Pulse Resp B/P (MAP) Pulse Ox O2 Delivery O2 Flow Rate FiO2 09/24/24 16:30 98.4 70 18 117/54 99 Room Air* 0 21 09/24/24 14:30 98.4 77 18 87/44 97 Room Air* 0 21 09/24/24 14:16 98.4 77 18 87/44 98 Room Air 0 DX & DISP Disposition: Discharge Departure Impression: Primary Impression: UTI (urinary tract infection) Condition: Stable Scripts Nitrofurantoin Monohyd/M-Cryst (Macrobid 100 mg Capsule) 100 Mg Capsule 1 CAP PO BID for 7 Days, #14 CAP 0 Refills Prov: AMADEO VIEIRA MD 09/24/24 Additional Instructions: FOLLOW-UP WITH PRIMARY CARE PROVIDER IN 1 TO 2 DAYS. TAKE MEDICATIONS DIRECTED HERE IN THE EMERGENCY ROOM. OKAY TO CONTINUE HOME MEDICATIONS UNLESS OTHERWISE DISCUSSED DURING YOUR VISIT IN THE EMERGENCY ROOM TODAY. RETURN TO YOUR NEAREST EMERGENCY ROOM IF SYMPTOMS WORSEN OR IF THERE IS NO IMPROVEMENT. CALL 911 IF YOU NEED IMMEDIATE ASSISTANCE. TAKE TYLENOL [id number] NEEDED AND IF NO CONTRAINDICATIONS ARE PRESENT. INCREASE ORAL HYDRATION. A WOUND CULTURE OR URINE CULTURE WAS ORDERED HERE IN THE EMERGENCY ROOM DEPARTMENT PLEASE FOLLOW-UP WITH PRIMARY CARE PROVIDER AND ADVISE THEM TO GET REPEAT PORTS FROM OUR FACILITY. IF YOU HAD ANY CATHI WRAP/SPLINTS THAT WERE APPLIED HERE, PL EASE DO NOT REMOVE THEM UNTIL YOU SEE YOUR PRIMARY CARE OR SPECIALTY. Referrals: Referrals: CHUCK NESBITT MD (PCP) BILLIE QIUROZ MD Time of Disposition: 17:12 AMADEO VIEIRA MD September 24, 2024 14:40
--- NOTE | 2024-09-24 14:47 | EKG ---
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
[2024-09-24 14:49] LABS: BASOPHILS # (AUTO) 0.07 K/uL (0.00-0.20); BASOPHILS % (AUTO) 0.8 % (0.0-5.0); EOSINOPHILS # (AUTO) 0.39 K/uL (0.00-0.70); EOSINOPHILS % (AUTO) 4.4 % (0.0-8.0); HEMATOCRIT 38.1 % (42-54); IMMATURE GRANULOCYTE ABSOLUTE 0.03 K/uL (0-1); LYMPHOCYTES # (AUTO) 2.4 K/uL (1.0-4.8); MEAN CORPUSCULAR HEMOGLOBIN 26.4 pg (27.0-33.0); MEAN CORPUSCULAR HGB CONC 31.5 g/dL (32.0-36.0); MEAN CORPUSCULAR VOLUME 83.9 fL (79-99); MONOCYTES # (AUTO) 0.6 K/uL (0.1-1.0); MONOCYTES % (AUTO) 7.3 % (3.0-13.0); NEUTROPHILS # (AUTO) 5.3 K/uL (1.8-7.7); NEUTROPHILS % (AUTO) 60.2 % (40.0-77.0); PLATELET COUNT (AUTO) 249 K/uL (130-400); RED BLOOD CELL COUNT(AUTO) 4.54 MIL/uL (4.50-6.20); WHITE BLOOD COUNT (AUTO) 8.8 K/uL (4.8-10.8)
[2024-09-24 14:59] LABS: INR 1.07 (0.85-1.15); PROTHROMBIN TIME 11.3 SEC (9.6-11.6)
[2024-09-24 15:00] LABS: CREATININE 1.5 mg/dL (0.5-1.3); PARTIAL THROMBOPLASTIN TIME 25.4 SEC (26.3-35.5); POTASSIUM 5.1 mmol/L (3.5-5.1)
[2024-09-24] MEDS: 0.9%NACL 1000ML 2,313 ML IV ONE (15:05)
[2024-09-24 17:02] LABS: APPEARANCE,URINE CLOUDY (CLEAR); BILIRUBIN,URINE NEGATIVE (NEGATIVE); COLOR,URINE YELLOW (YELLOW); GLUCOSE, URINE (UA) NEGATIVE (NEGATIVE); KETONES,URINE NEGATIVE (NEGATIVE); LEUKOCYTE ESTERASE ,URINE 250 Leu/uL (NEGATIVE); NITRATE,URINE NEGATIVE (NEGATIVE); OCCULT BLOOD,URINE NEGATIVE (NEGATIVE); PROTEIN,URINE 100 mg/dL (NEGATIVE)
[2024-09-24 17:06] LABS: ADD UA MICROSCOPIC YES
[2024-09-24 17:09] LABS: BACTERIA,URINE MOD /HPF (None Seen); HYALINE CASTS, URINE 0-1 /LPF (0-1 /LPF); MUCUS,URINE RARE LPF (None Seen); RBC,URINE 0-1 /HPF (0-1); SQUAMOUS EPITHELIAL CELL,UR RARE /HPF (0-2)
[2024-09-24] MEDS ORDERED: NITR100C4 PO (17:12)
[2024-09-24 18:34] VITALS: BP 109/54; PULSE 69; RESP 17; TEMP 98.4; O2SAT 98
[2024-09-24] MEDS: MAGNESIUM CITRATE 296 ML SOLUTION PO ONE (19:25)
== END 2024-09-24 19:26 | disposition home or self-care (01) ==
LOC: EDH 14:09
DX: N39.0 Urinary tract infection, site not specified (principal); E11.9 Type 2 diabetes mellitus without complications; E78.00 Pure hypercholesterolemia, unspecified; I10 Essential (primary) hypertension; I25.10 Atherosclerotic heart disease of native coronary artery without angina pectoris; Z79.02 Long term (current) use of antithrombotics/antiplatelets; Z79.4 Long term (current) use of insulin; Z79.52 Long term (current) use of systemic steroids; Z79.82 Long term (current) use of aspirin; Z79.899 Other long term (current) drug therapy; Z88.1 Allergy status to other antibiotic agents; Z89.512 Acquired absence of left leg below knee
CPT/HCPCS: 99284; 96360; 82550; 84484; 80048; 85025; 85610; 85730; 87040 ×2; 87086 ×2; 87186; 83605; 81001; 36415; 93005; 84145; J7030

== ENCOUNTER 2024-10-26 12:04 | Emergency (ER) | payer OTHER, MEDICARE ==
[~2024-10-26] VITALS: Ht 160 cm; Wt 81.6 kg
[~2024-10-26 12:04] MED LIST changes: +NITR100C4 PO
--- NOTE | 2024-10-26 12:18 | ERN ---
ED Note History of Present Illness Stated Complaint: HYPERTENSION/ ANXIETY Chief Complaint: Hypertension Time Seen by MD: 12:09 Dictation: PATIENT IS A 69-YEAR-OLD MALE COMING IN TODAY WITH COMPLAINTS OF HAVING HIGH BLOOD PRESSURE THIS MORNING, GREATER THAN 210 SYSTOLIC. NO CHEST PAIN NO BACK PAIN NO SOB. HE STATES HE DOES NOT HAVE A HEADACHE. IN HIS NIH IS 0 EXCEPT HE IS BLIND. PATIENT TOOK HIS SCHEDULED LISINOPRIL, THEN TOOK AMLODIPINE 15 MINUTES AFTER THAT. CURRENT BLOOD PRESSURE IN TRIAGE, 154 SYSTOLIC. HE STATES HE WOULD LIKE TO BE CHECKED OUT STATES HE IS COMPLIANT WITH HIS MEDICATIONS. Allergies: Coded Allergies: No Known Allergies (Unverified Allergy, Unknown, 03/03/23) ceftriaxone (Unverified Allergy, Unknown, 09/24/24) Home Meds Active Scripts Nitrofurantoin Monohyd/M-Cryst (Macrobid 100 mg Capsule) 100 Mg Capsule, 1 CAP PO BID for 7 Days, #14 CAP 0 Refills Prov:AMADEO VIEIRA MD 09/24/24 Prednisone (Prednisone) 20 Mg Tablet, 1 TAB PO BID for 5 Days, #10 TAB 0 Refills Prov:NORMA ORTEGA DO 09/16/24 Sulfamethoxazole/Trimethoprim (Bactrim Ds Tablet) 800 Mg-160 Mg Tablet, 1 TAB PO BID for 10 Days, #20 TAB 0 Refills Prov:NORMA ORTEGA DO 09/16/24 Cephalexin Monohydrate (Keflex) 500 Mg Cap, 1 CAP PO BID for 10 Days, #20 CAP 0 Refills Prov:AMADEO VIEIRA MD 09/15/24 Reported Medications Amlodipine Besylate (Amlodipine Besylate) 10 Mg Tablet, 10 MG PO DAILY for 30 Days, #30 TAB 0 Refills 01/15/24 Clopidogrel Bisulfate (Clopidogrel) 75 Mg Tablet, 75 MG PO DAILY, TAB 01/15/24 Potassium Chloride (Potassium Chloride) 20 Meq Tablet.er, 20 MEQ PO DAILY, TAB 01/15/24 Midodrine HCl (Midodrine HCl) 10 Mg Tablet, 10 MG PO DAILY, TAB 01/15/24 Zinc Amino Acid Chelate (Zinc) 50 Mg Tablet, 50 MG PO DAILY, TAB 08/25/23 Cholecalciferol (Vitamin D3) (Vitamin D3) 25 Mcg (1000 Unit) Tablet, 25 MCG PO DAILY, TAB 08/25/23 Acetaminophen with Codeine (Acetaminophen-Cod #3 Tablet) 300 Mg-30 Mg Tablet, 1 EACH PO Q6HPRN PRN for PAIN, TAB 08/25/23 Multivitamin (Multivitamin) 1 Each Tablet, 1 EACH PO DAILY, TAB 08/25/23 Metoprolol Tartrate (Metoprolol Tartrate) 25 Mg Tablet, 25 MG PO BID, TAB 08/25/23 Furosemide (Lasix 20Mg Tab) 20 Mg Tablet, 20 MG PO BID, TAB 08/25/23 Insulin Glargine,Hum.rec.anlog (Lantus) 100 Unit/Ml Inj, 10 UNITS SQ DAILY, ML 08/25/23 Hydroxyzine HCl (Hydroxyzine HCl) 25 Mg Tablet, 25 MG PO Q6HPRN PRN for ITCHING, TAB 08/25/23 Insulin Regular, Human (Novolin R) 100 Unit/Ml Vial, 0 SQ AD, VIAL 08/25/23 Folic Acid (Folvite) 1 Mg Tab, 1 MG PO DAILY, TAB 08/25/23 Famotidine (Famotidine) 20 Mg Tablet, 20 MG PO DAILY, TAB 08/25/23 Cyanocobalamin (Vitamin B-12) (Vitamin B-12) 1,000 Mcg Tablet, 1000 MCG PO DAILY, TAB 08/25/23 Aspirin (ASPIRIN 81 MG ECTAB) 81 Mg Ectab, 81 MG PO DAILY, TAB.EC 08/25/23 Past Medical History Past Medical History: Anxiety, Diabetes-Type II, Hypertension Additional Past Medical Hx: FALLS, SEPSIS, ANGINA, BLIND Surgical History: Other Surgical History Other: LEFT BKA, LESLIE CATARACTS Family History: Negative Social History: Negative, Lives in Penit[facility]iary RN Note Reviewed/Agreed w/PFSH: Yes Review of System Dictation CONSTITUTIONAL: NEGATIVE EXCEPT FOR HPI HEAD/FACE: NEGATIVE EXCEPT FOR HPI EENT: NEGATIVE EXCEPT FOR HPI RESPIRATORY: NEGATIVE EXCEPT FOR HPI GASTROINTESTINAL/ABDOMINAL: NEGATIVE EXCEPT FOR HPI GENITOURINARY: NEGATIVE EXCEPT FOR HPI MUSCULOSKELETAL: NEGATIVE EXCEPT FOR HPI INTEGUMENTARY: NEGATIVE EXCEPT FOR HPI NEUROLOGICAL/PSYCH: NEGATIVE EXCEPT FOR HPI ANXIETY HEMATOLOGIC/LYMPHATIC: NEGATIVE EXCEPT FOR HPI ALL SYSTEMS NEGATIVE, EXCEPT NOTED ABOVE. 13 POINT REVIEW OF SYSTEMS ASSESSED AND ALL NEGATIVE EXCEPT FOR ABOVE. Initial Vital Sign VS Vital Signs Date Time Temp Pulse Resp B/P (MAP) Pulse Ox O2 Delivery O2 Flow Rate FiO2 10/26/24 12:08 98.1 80 18 154/84 100 0 10/26/24 12:26 Room Air* 21 Physical Exam Dictation VITAL SIGNS REVIEWED GENERAL APPEARANCE: ALERT, ORIENTED X 3, NO ACUTE DISTRESS, WELL DEVELOPED, NOURISHED. HEAD AND FACE: NON-TRAUMATIC. EYES: PERRL, EYELID NO TRAUMA, ANTERIOR CHAMBER WITH ARCUS SENILIS. BLIND EARS: PINNAS INTACT AND NO SIGNS OF TRAUMA OR ERYTHEMA EAR CANALS CLEAR AND NO DISCHARGE TM NO ERYTHEMA NOSE: NO DISCHARGE, NO BLEEDING. OROPHARYNX: MOUTH NORMAL, TONGUE PINK, PHARYNX CLEAR,NO ERYTHEMA, TONSILS NO EXUDATES, NO ABSCESSES NOTED, MUCOUS MEMBRANE MOIST NECK: SUPPLE, NON-TENDER, NO THYROMEGALY, NO MASSES, NO JVD, NO BRUITS BREAST:DEFERRED CHEST:NO TENDERNESS, NO CREPITUS, NO PARADOXICAL MOVEMENT, NO RETRACTIONS LUNGS:CLEAR, WELL-VENTILATED, SYMMETRIC, NO RALES, NO WHEEZING, NO RHONCHI, NO STRIDOR, GOOD BREATH SOUNDS BILATERALLY HEART: REGULAR RATE, REGULAR RHYTHM, NO MURMUR, NO GALLOPS VASCULAR: NO PERIPHERAL EDEMA, RIGHT LEG ABDOMEN: SOFT, POSITIVE BOWEL SOUNDS, NONDISTENDED, NO GUARDING, NONTENDER, NO REBOUND, NO MASSES NO HEPATOMEGALY, NO SPLENOMEGALY, NO HAWTHORNE'S SIGN, NO HERNIAS. RECTAL: DEFERRED GENITAL: DEFERRED NEUROLOGICAL: NORMAL SPEECH, MOTOR FUNCTION INTACT, SENSORY FUNCTION INTACT MUSCULOSKELETAL: NECK NONTENDER, FULL RANGE OF MOTION, BACK NONTENDER, FULL RANGE OF MOTION, EXTREMITIES: NONTENDER, FULL RANGE OF MOTION LEFT [id number] AMPUTATION SKIN: COLOR PINK, DRY, NO TURGOR, NO RASH, NO LACERATIONS, NO ABRASIONS, NO CONTUSIONS. LYMPHATIC: DEFERRED Results (Laboratory/Radiology) Laboratory/Radiology Laboratory Tests Test 10/26/24 12:26 White Blood Count 6.2 K/uL (4.8-10.8) Red Blood Count 4.40 MIL/uL (4.50-6.20) L Hemoglobin 11.9 g/dL (14.0-18.0) L Hematocrit 37.4 % (42-54) L Mean Corpuscular Volume 85.0 fL (79-99) Mean Corpuscular Hemoglobin 27.0 pg (27.0-33.0) Mean Corpuscular Hemoglobin Concent 31.8 g/dL (32.0-36.0) L Red Cell Distribution Width 14.2 % (11.0-15.5) Platelet Count 197 K/uL (130-400) Mean Platelet Volume 9.3 fL (7.5-10.5) Immature Granulocyte % (Auto) 0.3 % (0-1) Neutrophils (%) (Auto) 58.1 % (40.0-77.0) Lymphocytes (%) (Auto) 29.3 % (21.0-51.0) Monocytes (%) (Auto) 8.8 % (3.0-13.0) Eosinophils (%) (Auto) 2.9 % (0.0-8.0) Basophils (%) (Auto) 0.6 % (0.0-5.0) Neutrophils # (Auto) 3.6 K/uL (1.8-7.7) Lymphocytes # (Auto) 1.8 K/uL (1.0-4.8) Monocytes # (Auto) 0.5 K/uL (0.1-1.0) Eosinophils # (Auto) 0.18 K/uL (0.00-0.70) Basophils # (Auto) 0.04 K/uL (0.00-0.20) Absolute Immature Granulocyte (auto 0.02 K/uL (0-1) Nucleated Red Blood Cells 0.0 % (0.0-0.19) Sodium Level 138 mmol/L (136-145) Potassium Level 4.3 mmol/L (3.5-5.1) Chloride Level 102 mmol/L (101-111) Carbon Dioxide Level 29 mmol/L (21-32) Blood Urea Nitrogen 18 mg/dL (7-18) Creatinine 0.8 mg/dL (0.5-1.3) Glomerular Filtration Rate Calc 96 mL/min (>90) Random Glucose 115 mg/dL (70-105) H Total Calcium 8.7 mg/dL (8.5-10.1) Magnesium Level 2.00 mg/dL (1.80-2.40) Troponin I High Sensitivity 10 ng/L (4-75) B-Type Natriuretic Peptide 30 pg/mL (0-100) Labs Reviewed?: Yes EKG: (+) NSR EKG Comment: EKG NORMAL SINUS RHYTHM/HEART RATE 72/AXIS NORMAL/NO ECTOPY ED Course ED Course Orders Procedure Category Date Status Time Cbc With Differential LAB 10/26/24 Complete 12:16 B-Type Natriuretic LAB 10/26/24 Complete Peptide 12:16 12 Lead Ekg Tracing- EKG 10/26/24 Complete Technical 12:16 Magnesium LAB 10/26/24 Complete 12:16 Troponin I High LAB 10/26/24 Complete Sensitivity 12:16 Basic Metabolic Panel LAB 10/26/24 Complete 12:16 Vital Signs Date Time Temp Pulse Resp B/P (MAP) Pulse Ox O2 Delivery O2 Flow Rate FiO2 10/26/24 12:26 98.2 85 20 141/75 95 Room Air* 0 21 10/26/24 12:08 98.1 80 18 154/84 100 0 1302/LAST BLOOD PRESSURE 141/75. PATIENT HAS NO CHEST PAIN NO BACK PAIN NO SOB. STATES HE DOES NOT HAVE A HEADACHE. HE WILL BE DISCHARGED HOME AND TOLD TO FOLLOW UP WITH HIS PRIMARY CARE DOCTOR NEEDED AND CONTINUE HIS HYPER TENTATIVE MEDICATIONS PRESCRIBED BY HIS DOCTOR. HEART Score Response (Comments) Value History: Low suspicion (0) 0 Age: > 65yrs (+2) 2 Risk Factors: 3+ risk factors (+2) 2 Initial Troponin: Normal limit (0) 0 Total 4 Medical Decision Making MDM MEDICAL DISCHARGE MAKING BASED ON CARDIAC WORKUP AND EVALUATION OF HYPERTENSION. WORKUP IS ESSENTIALLY UNREMARKABLE EKG NORMAL PATIENT HAS BEEN NINE HYPERTENSION WITH SYSTOLIC 1410 DISCHARGED HOME. TOLD TO FOLLOW UP WITH HIS PRIMARY CARE DOCTOR FOR MANAGEMENT DX & DISP Disposition: Discharge Departure Impression: Primary Impression: Benign hypertension Additional Impressions: Anxiety, Hyperglycemia Condition: Stable Additional Instructions: FOLLOW-UP WITH PRIMARY CARE PROVIDER IN 1 TO 2 DAYS. TAKE MEDICATIONS DIRECTED HERE IN THE EMERGENCY ROOM. OKAY TO CONTINUE HOME MEDICATIONS UNLESS OTHERWISE DISCUSSED DURING YOUR VISIT IN THE EMERGENCY ROOM TODAY. RETURN TO YOUR NEAREST EMERGENCY ROOM IF SYMPTOMS WORSEN OR IF THERE IS NO IMPROVEMENT. CALL 911 IF YOU NEED IMMEDIATE ASSISTANCE. TAKE TYLENOL OR MOTRIN [id number] NEEDED AND IF NO CONTRAINDICATIONS ARE PRESENT. INCREASE ORAL HYDRATION. A WOUND CULTURE OR URINE CULTURE WAS ORDERED HERE IN THE EMERG ENCY ROOM DEPARTMENT PLEASE FOLLOW-UP WITH PRIMARY CARE PROVIDER AND ADVISE THEM TO GET REPEAT PORTS FROM OUR FACILITY. IF YOU HAD ANY CATHI WRAP/SPLINTS THAT WERE APPLIED HERE, PLEASE DO NOT REMOVE THEM UNTIL YOU SEE YOUR PRIMARY CARE OR SPECIALTY. CONTINUE YOUR BLOOD PRESSURE MEDICATIONS FROM YOUR PRIMARY CARE DOCTOR. FOLLOW UP WITH HIM IN THE NEXT 1-2 DAYS NEEDED. Referrals: CHUCK NESBITT MD (PCP) Time of Disposition: 13:06 I have reviewed the case, and I agree with, Diagnosis and Plan JEANETTE WEBSTER NP Oct 26, 2024 12:18
[2024-10-26 12:26] VITALS: TEMP 98.3
[2024-10-26 12:30] LABS: BASOPHILS # (AUTO) 0.04 K/uL (0.00-0.20); BASOPHILS % (AUTO) 0.6 % (0.0-5.0); EOSINOPHILS # (AUTO) 0.18 K/uL (0.00-0.70); EOSINOPHILS % (AUTO) 2.9 % (0.0-8.0); HEMATOCRIT 37.4 % (42-54); IMMATURE GRANULOCYTE ABSOLUTE 0.02 K/uL (0-1); LYMPHOCYTES # (AUTO) 1.8 K/uL (1.0-4.8); LYMPHOCYTES % (AUTO) 29.3 % (21.0-51.0); MEAN CORPUSCULAR HGB CONC 31.8 g/dL (32.0-36.0); MONOCYTES # (AUTO) 0.5 K/uL (0.1-1.0); MONOCYTES % (AUTO) 8.8 % (3.0-13.0); NEUTROPHILS # (AUTO) 3.6 K/uL (1.8-7.7); NEUTROPHILS % (AUTO) 58.1 % (40.0-77.0); PLATELET COUNT (AUTO) 197 K/uL (130-400); RED CELL DISTRIBUTION WIDTH 14.2 % (11.0-15.5); WHITE BLOOD COUNT (AUTO) 6.2 K/uL (4.8-10.8)
[2024-10-26 12:39] LABS: CREATININE 0.8 mg/dL (0.5-1.3); POTASSIUM 4.3 mmol/L (3.5-5.1)
--- NOTE | 2024-10-26 12:39 | EKG ---
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
[2024-10-26 12:54] LABS: B-TYPE NATRIURETIC PEPTIDE 30 pg/mL (0-100)
[2024-10-26 13:23] VITALS: BP 111/63; PULSE 82; RESP 18; O2SAT 97
== END 2024-10-26 13:46 | disposition home or self-care (01) ==
LOC: EDH 12:04
DX: I10 Essential (primary) hypertension (principal); F41.9 Anxiety disorder, unspecified; E11.65 Type 2 diabetes mellitus with hyperglycemia; Z79.02 Long term (current) use of antithrombotics/antiplatelets; Z79.4 Long term (current) use of insulin; Z79.52 Long term (current) use of systemic steroids; Z79.82 Long term (current) use of aspirin; Z79.899 Other long term (current) drug therapy; Z88.1 Allergy status to other antibiotic agents; Z89.512 Acquired absence of left leg below knee
CPT/HCPCS: 36415; 80048; 83735; 83880; 84484; 85025; 93005; 99284